=== PATIENT | male | born 1955 | race Caucasian/White ===

== ENCOUNTER 2024-03-26 14:18 | Outpatient (CLI) | payer MEDICARE, OTHER, SELFPAY ==
--- NOTE | ~2024-03-26 | XR_ITS ---
CHEST RADIOGRAPH, PA AND LATERAL CLINICAL HISTORY: chronic diastolic congestive heart failure . COMPARISON: None available TECHNIQUE: PA and lateral views of the chest. FINDINGS Sternal wires and mediastinal clips are identified, the wires are midline and intact. Clip is identified to the left of midline, projecting over the left atrial appendage. Prosthetic valve in the aortic position. The remainder of the cardiomediastinal silhouette is otherwise unremarkable. Blunting of the bilateral costophrenic sulci, consistent with small bilateral pleural effusions The remainder the lungs are clear IMPRESSION: Small bilateral pleural effusions without focal infiltrate. Reviewed, dictated and finalized at location A. S OR SURVEYS INTERVIEWER
[2024-03-26 15:28] LABS: Basophils Absolute Auto 0.1 K/mm3 (0.0-0.1); Basophils Percent Auto 0.4 % (0.2-1.2); Eosinophils Absolute Auto 0.1 K/mm3 (0-0.3); Eosinophils Percent Auto 0.9 % (0-4.4); Hematocrit 33.4 % (42.0-52.0); Hemoglobin 11.2 g/dL (14.0-18.0); Immature Granulocyte Absolute 0.05 K/mm3 (0.00-0.031); Immature Granulocyte Percent A 0.4 % (0-0.5); Lymphocytes Absolute Auto 0.66 K/mm3 (0.9-3.2); Lymphocytes Percent Auto 5.5 % (18.3-44.2); Mean Corpuscular HGB Conc 33.5 g/dl (32-36); Mean Corpuscular Hemoglobin 26.7 pg (26-34); Mean Corpuscular Volume 79.5 fl (80-100); Mean Platelet Volume 11.7 fl (7.4-10.4); Monocytes Absolute Auto 1.6 K/mm3 (0.1-0.6); Monocytes Percent Auto 13.3 % (2.6-8.5); Neutrophils Absolute Auto 9.5 K/mm3 (1.3-6.7); Neutrophils Percent Auto 79.5 % (45.5-73.1); Platelet Count Result 514 k/mm3 (150-375)
[2024-03-26 15:39] LABS: Alanine Aminotransferase 26 U/L (6-50); Albumin Level 4.1 g/dL (3.5-5.1); Alkaline Phosphatase 131 U/L (38-126); Anion Gap 10 mmol/L (4-12); Aspartate Amino Transferase 33 U/L (17-59); Blood Urea Nitrogen 42 mg/dL (9-20); Carbon Dioxide 26 mmol/L (22-30); Chloride 100 mmol/L (98-107); Estimated Glomerular Filt Rate 38; Glucose 141 mg/dL (65-110); Potassium 4.4 mmol/L (3.4-5.0); Sodium 136 mmol/L (137-145)
[2024-03-26 15:48] LABS: NT Pro B Type Natriuretic Pept 4960 pg/mL (19.9-100)
== END 2024-03-26 14:19 | disposition home or self-care (01) ==
DX: I50.32 Chronic diastolic (congestive) heart failure (principal); R06.02 Shortness of breath; J90 Pleural effusion, not elsewhere classified
CPT/HCPCS: 36415; 71046; 80053; 83880; 85025

== ENCOUNTER 2024-03-31 16:29 | Inpatient (IN) | payer MEDICARE, OTHER, SELFPAY ==
[2024-03-31] VITALS (17 sets, daily range): BP systolic 127–151; BP diastolic 55–67; PULSE 64–72; RESP 13–26; TEMP 36.1–36.5; O2SAT 93–97; BMI 22.7
--- NOTE | ~2024-03-31 | US_ITS ---
EXAMINATION: US venous doppler [facility] DATE: 04/01/2024 15:18 INDICATION: Lower limb swelling TECHNIQUE: Grayscale ultrasound images without and with compression and Doppler ultrasound images of the bilateral lower extremity veins were obtained. COMPARISON: None. FINDINGS: The visualized portions of right common femoral vein, profunda (deep) femoral vein, femoral vein, pop liteal vein, posterior tibial veins, peroneal veins, gastrocnemius vein and greater saphenous vein ou tflow are patent. The visualized portions of left common femoral vein, profunda femoral vein, femoral vein, popliteal v ein, posterior tibial veins, peroneal veins, gastrocnemius vein and greater saphenous vein outflow ar e patent. IMPRESSION: 1. No deep venous thrombosis in either lower limb. Reviewed, dictated and finalized at location A. ER SECURITY ADMINISTRATOR
--- NOTE | ~2024-03-31 | XR_ITS ---
XR chest 2V Ordering provider: Leydi Mac History: 69 years Male with . chf . Comparison: None. FINDINGS: MEDIASTINUM: The cardiac silhouette is not enlarged. Postoperative changes in the mediastinum. Slight ly congestive yash. LUNGS: No pneumothorax. Opacification in the left lower lobe area with minimal left pleural effusion or thickening. Underlying emphysematous/fibrotic changes. OTHER: No free air under the diaphragm. IMPRESSION: Left lower lobe atelectasis versus pneumonia with pleural effusion. Reviewed, dictated and finalized at location A. WOOD GRINDER
--- NOTE | ~2024-03-31 | XR_ITS ---
EXAMINATION: XR chest 1V portable DATE: 04/03/2024 11:17 INDICATION: New oxygen requirement TECHNIQUE: frontal view of the chest was obtained. COMPARISON: Chest radiograph dated 11/29/2023 FINDINGS: There are increasing opacities in the lower lung zones with retrocardiac consolidation. There is blun ting at the right costophrenic angle and indistinctness to the left hemidiaphragm consistent with sma ll bilateral pleural effusions. No pulmonary edema or pneumothorax. Heart size is normal. Median ster notomy wires and aortic valve repair. There is also a left atrial appendage occlusion clip. Multiple small ringlike opacities projecting over the upper abdomen consistent with likely prior ventral herni a mesh repair. IMPRESSION: 1. Increasing opacities in the bilateral lower lung zones consistent with increasing small bilateral pleural effusions and associated atelectasis and/or pneumonia. Reviewed, dictated and finalized at location A. R REUSE PROGRAM MANAGER IMPRESSION: 1. Increasing opacities in the bilateral lower lung zones consistent with incre asing small bilateral pleural effusions and associated atelectasis and/or pneum onia.
--- NOTE | 2024-03-31 16:30 | ECG_ITS ---
Test Date: 2024-03-31 16:42:07 Measurements Intervals [place] Rate: 67 P: 0 ND: 0 QRS: 34 QRSD: 166 T: 134 QT: 474 QTc: 503 Interpretive Statements SINUS RHYTHM WITH FIRT DEGREE AV BLOCK NON-CONDUCTED ATRIAL PREMATURE COMPLEXES LEFT BUNDLE BRANCH BLOCK BASELINE ARTIFACT- I, II, III, AVR, AVL, AVF, V4-V6 ABNORMAL ECG No previous ECG available for comparison Electronically Signed On 03-31-2024 19:10:20 TRUCK BRACER by Casey Lopez D.O.
--- NOTE | 2024-03-31 16:51 | ED.SOB ---
HPI - SOB/Dyspnea General Chief Complaint: Shortness of Breath/Dyspnea <DHAVAL Katz Last Filed: 03/31/24 17:01> Stated Complaint: chf <DHAVAL Katz Last Filed: 03/31/24 17:01> Time Seen by Provider: 03/31/24 16:45 <DHAVAL Katz Last Filed: 03/31/24 17:01> Focused HPI: Patient is a 69 y/o male, with PMH of AFIB, CHF, LBBB, CAD s/p stenting, who presents to the ED with c/o SOB. patient reports having increased shortness of breath and swelling in his lower extremities over the last several days. He was recently seen by his logistics lead, Dr. Lauren, and had his Lasix increased. Patient states he continues to gain weight have increased swelling. Denies chest pain. He does report a mild cough. Denies fevers. GENERAL: Elderly, frail, and in no acute distress. HEAD: Normocephalic, atraumatic. CHEST: Clear to auscultation. ?Mild tachypnea and labored breathing. Rhonchi in bases mara. Conversational dyspnea. HEART: Regular rate and rhythm.?Diffuse pitting edema in BLE NEURO: ?Alert and oriented x3. Patient screened in triage and initial orders placed.? ?Additional care and disposition to be based upon?diagnostic testing and treatment. <Keisha Del Angel PA-C - Last Filed: 03/31/24 17:01> Focused HPI: Patient is a 69 y/o male, with PMH of AFIB, CHF, LBBB, CAD s/p stenting, who presents to the ED with c/o SOB. Patient reports having increased shortness of breath and swelling in his lower extremities over the last several days. He was recently seen by his logistics lead, Dr. Lauren, and had his Lasix increased. Patient states he continues to gain weight have increased swelling. Denies chest pain. He does report a mild cough. Denies fevers. GENERAL: Elderly, frail, and in no acute distress. HEAD: Normocephalic, atraumatic. CHEST: Clear to auscultation. ?Mild tachypnea and labored breathing. Rhonchi in bases mara. Conversational dyspnea. HEART: Regular rate and rhythm.?Diffuse pitting edema in BLE NEURO: ?Alert and oriented x3. Patient screened in triage and initial orders placed.? ?Additional care and disposition to be based upon?diagnostic testing and treatment. <Kimberley Hidalgo MD - Last Filed: 03/31/24 21:22> Source: patient <Keisha Del Angel PA-C - Last Filed: 03/31/24 17:01> Mode of arrival: ambulatory <Keisha Del Angel PA-C - Last Filed: 03/31/24 17:01> Limitations: no limitations <DHAVAL Katz Last Filed: 03/31/24 17:01> Related Data Allergies/Adverse Reactions: Allergies Allergy/AdvReac Type Severity Reaction Status Date / Time No Known Allergies Allergy Verified 03/31/24 20:36 <Keisha Del Angel PA-C - Last Filed: 03/31/24 17:01> Review of Systems Review of Systems: All systems are reviewed and are negative unless stated otherwise in the HPI. <Kimberley Hidalgo MD - Last Filed: 03/31/24 21:22> Exam Narrative: General: Alert, awake, afebrile, in no acute distress. HEENT: PERRL, no rhinorrhea, no post nasal drip, oropharynx clear. Neck: Trachea midline, no JVD, no lymphadenopathy. Cardiovascular: Regular rate and rhythm, no murmurs, rubs or gallops, 2+ bilateral lower extremity pitting edema. Respiratory: Clear to auscultation bilaterally, no tachypnea, no wheezing, no rhonchi, no rubs, no respiratory distress. Abdomen: Soft, nontender, nondistended, no rebound, no guarding, no peritoneal signs. Musculoskeletal: No joint swelling or deformity, normal muscle tone. Skin: No rashes or petechia, no signs of infection. Psychiatric: Alert and oriented, normal behavior and judgment for situation. Neurological: Alert and oriented to person, place, and time. Follows all commands. No focal deficits, speech is clear and fluent. <Kimberley Hidalgo MD - Last Filed: 03/31/24 21:22> Course Vital Signs Vital signs: Vital Signs Temperature 97.7 F 03/31/24 16:56 Pulse Rate 68 03/31/24 16:56 Respiratory Rate 17 03/31/24 16:56 Blood Pressure 151/59 H 03/31/24 16:56 Pulse Oximetry 97 03/31/24 16:56 Temperature 97.7 F 03/31/24 16:56 Pulse Rate 69 03/31/24 21:12 Respiratory Rate 23 H 03/31/24 21:12 Blood Pressure 149/61 H 03/31/24 21:12 Pulse Oximetry 94 03/31/24 19:40 <Keisha Del Angel PA-C - Last Filed: 03/31/24 17:01> Vital Signs Temperature 97.7 F 03/31/24 16:56 Pulse Rate 68 03/31/24 16:56 Respiratory Rate 17 03/31/24 16:56 Blood Pressure 151/59 H 03/31/24 16:56 Pulse Oximetry 97 03/31/24 16:56 Temperature 97.7 F 03/31/24 16:56 Pulse Rate 69 03/31/24 21:12 Respiratory Rate 23 H 03/31/24 21:12 Blood Pressure 149/61 H 03/31/24 21:12 Pulse Oximetry 94 03/31/24 19:40 <Kimberley Hidalgo MD - Last Filed: 03/31/24 21:22> MDM - SOB/Dyspnea MDM Narrative Medical decision making narrative: MSE by AYDIN in triage. <Keisha Del Angel PA-C - Last Filed: 03/31/24 17:01> MSE by AYDIN in triage. The patient was evaluated by myself in the emergency department. History is obtained from patient who is an independent historian and physical exam was performed. External medical records were reviewed at this time. IV was established and pertinent tests were ordered. Patient was administered 80 mg of IV Lasix. Patient recently had his Lasix increased from 40 mg once a day to 80 mg twice a day for the past week with minimal to no improvement of his symptoms. EKG was obtained which revealed sinus rhythm rate of 67 beats per minute. No ST changes, T wave inversions or evidence of acute ischemia. EKG was independently interpreted by me and is currently pending official cardiology read. Laboratory results obtained revealing a leukocytosis of 12.5, BUN 43, creatinine 1.6 and a proBNP of 3680. Imaging studies obtained included CXR which was independently interpreted by me revealing a left lower lobe atelectasis versus pneumonia with pleural effusion, which is pending final radiology interpretation. Patient was started on azithromycin and Rocephin to cover him for community-acquired pneumonia after blood cultures were obtained. Differential diagnosis considerations include CHF exacerbation, fluid overload, infectious process such as pneumonia, acute viral syndrome. Comorbidities impacting this visit include history of CHF. I have evaluated and discussed social determinants of health with the patient that could potentially impact subsequent diagnosis and treatment plans. On repeat assessment of the patient, reevaluation revealed that the patient is doing well and is in no acute distress. Patient symptoms have remained stable since he arrived to our emergency department. Repeat vital signs were all reviewed and noted to be stable. Differential diagnosis and treatment plan were discussed with the patient at bedside. Patient agrees with discussion and after shared medical decision making agrees with admission. All questions were answered to the patient's satisfaction. Patient will be admitted to our general medical floor under the care of Dr. Branch and case was discussed with the on-call RETAIL SALES ASSOCIATE SEASONAL Carlos at 2024 and he accepted admisison. The patient remains stable and ready for admission. <Kimberley Hidalgo MD - Last Filed: 03/31/24 21:22> Lab Data Result diagrams: 03/31/24 17:02 03/31/24 17:02 <Keisha Del Angel PA-C - Last Filed: 03/31/24 17:01> Labs: Lab Results 03/31/24 Range/Units 17:02 WBC 12.5 H (4.5-10.0) K/mm3 RBC 4.25 L (4.6-6.20) M/mm3 Hgb 11.2 L (14.0-18.0) g/dL Hct 33.2 L (42.0-52.0) % MCV 78.1 L (80-100) fl MCH 26.4 (26-34) pg MCHC 33.7 (32-36) g/dl RDW 21.0 H (11.5-14.5) % Plt Count 541 H (150-375) k/mm3 MPV 10.5 H (7.4-10.4) fl Immature Gran % (Auto) 0.6 H (0-0.5) % Neut % (Auto) 75.9 H (45.5-73.1) % Lymph % (Auto) 7.5 L (18.3-44.2) % [place] % (Auto) 13.2 H (2.6-8.5) % Eos % (Auto) 2.2 (0-4.4) % Baso % (Auto) 0.6 (0.2-1.2) % Lymph # (Auto) 0.94 (0.9-3.2) K/mm3 [place] # (Auto) 1.7 H (0.1-0.6) K/mm3 Eos # (Auto) 0.3 (0-0.3) K/mm3 Baso # (Auto) 0.1 (0.0-0.1) K/mm3 Abs Immat Gran (auto) 0.07 H (0.00-0.031) K/mm3 Absolute Neuts (auto) 9.5 H (1.3-6.7) K/mm3 Absolute Nucleated RBC 0.000 (0.0-0.012) K/mm3 Nucleated RBC % 0.0 (0.0-0.2) % PT 15.4 H (11.1-14.7) Seconds INR 1.2 APTT 31.6 (22.3-36.8) Seconds Sodium 134 L (137-145) mmol/L Potassium 4.0 (3.4-5.0) mmol/L Chloride 99 (98-107) mmol/L Carbon Dioxide 28 (22-30) mmol/L Anion Gap 7 (4-12) mmol/L BUN 43 H (9-20) mg/dL Creatinine 1.60 H (0.7-1.3) mg/dL Estim Creat Clear Calc 40 ml/min Estimated GFR 43 L (59 - ) Glucose 108 (65-110) mg/dL Calcium 8.7 (8.4-10.2) mg/dL Total Bilirubin 1.0 (0.2-1.3) mg/dL AST 44 (17-59) U/L ALT 35 (6-50) U/L Alkaline Phosphatase 166 H (38-126) U/L Troponin I 0.018 (0.000-0.034) ng/mL NT-Pro-B Natriuret Pep 3680 H (19.9-100) pg/mL Total Protein 8.0 (6.3-8.2) g/dL Albumin 4.1 (3.5-5.1) g/dL <Keisha Del Angel PA-C - Last Filed: 03/31/24 17:01> Lab Results 03/31/24 Range/Units 17:02 WBC 12.5 H (4.5-10.0) K/mm3 RBC 4.25 L (4.6-6.20) M/mm3 Hgb 11.2 L (14.0-18.0) g/dL Hct 33.2 L (42.0-52.0) % MCV 78.1 L (80-100) fl MCH 26.4 (26-34) pg MCHC 33.7 (32-36) g/dl RDW 21.0 H (11.5-14.5) % Plt Count 541 H (150-375) k/mm3 MPV 10.5 H (7.4-10.4) fl Immature Gran % (Auto) 0.6 H (0-0.5) % Neut % (Auto) 75.9 H (45.5-73.1) % Lymph % (Auto) 7.5 L (18.3-44.2) % [place] % (Auto) 13.2 H (2.6-8.5) % Eos % (Auto) 2.2 (0-4.4) % Baso % (Auto) 0.6 (0.2-1.2) % Lymph # (Auto) 0.94 (0.9-3.2) K/mm3 [place] # (Auto) 1.7 H (0.1-0.6) K/mm3 Eos # (Auto) 0.3 (0-0.3) K/mm3 Baso # (Auto) 0.1 (0.0-0.1) K/mm3 Abs Immat Gran (auto) 0.07 H (0.00-0.031) K/mm3 Absolute Neuts (auto) 9.5 H (1.3-6.7) K/mm3 Absolute Nucleated RBC 0.000 (0.0-0.012) K/mm3 Nucleated RBC % 0.0 (0.0-0.2) % PT 15.4 H (11.1-14.7) Seconds INR 1.2 APTT 31.6 (22.3-36.8) Seconds Sodium 134 L (137-145) mmol/L Potassium 4.0 (3.4-5.0) mmol/L Chloride 99 (98-107) mmol/L Carbon Dioxide 28 (22-30) mmol/L Anion Gap 7 (4-12) mmol/L BUN 43 H (9-20) mg/dL Creatinine 1.60 H (0.7-1.3) mg/dL Estim Creat Clear Calc 40 ml/min Estimated GFR 43 L (59 - ) Glucose 108 (65-110) mg/dL Calcium 8.7 (8.4-10.2) mg/dL Total Bilirubin 1.0 (0.2-1.3) mg/dL AST 44 (17-59) U/L ALT 35 (6-50) U/L Alkaline Phosphatase 166 H (38-126) U/L Troponin I 0.018 (0.000-0.034) ng/mL NT-Pro-B Natriuret Pep 3680 H (19.9-100) pg/mL Total Protein 8.0 (6.3-8.2) g/dL Albumin 4.1 (3.5-5.1) g/dL <Kimberley Hidalgo MD - Last Filed: 03/31/24 21:22> Discharge Plan Discharge Clinical Impression: Community acquired pneumonia, Congestive heart failure, Bilateral edema of lower extremity <Keisha Del Angel PA-C - Last Filed: 03/31/24 17:01> Patient Disposition: Still a Patient <Keisha Del Angel PA-C - Last Filed: 03/31/24 17:01> Condition: Stable <Keisha Del Angel PA-C - Last Filed: 03/31/24 17:01> Time of Disposition: 21:22 <Keisha Del Angel PA-C - Last Filed: 03/31/24 17:01> 21:22 <Kimberley Hidalgo MD - Last Filed: 03/31/24 21:22>
[2024-03-31 17:08] LABS: Basophils Absolute Auto 0.1 K/mm3 (0.0-0.1); Basophils Percent Auto 0.6 % (0.2-1.2); Eosinophils Absolute Auto 0.3 K/mm3 (0-0.3); Eosinophils Percent Auto 2.2 % (0-4.4); Hematocrit 33.2 % (42.0-52.0); Hemoglobin 11.2 g/dL (14.0-18.0); Immature Granulocyte Absolute 0.07 K/mm3 (0.00-0.031); Immature Granulocyte Percent A 0.6 % (0-0.5); Lymphocytes Absolute Auto 0.94 K/mm3 (0.9-3.2); Lymphocytes Percent Auto 7.5 % (18.3-44.2); Mean Corpuscular HGB Conc 33.7 g/dl (32-36); Mean Corpuscular Hemoglobin 26.4 pg (26-34); Mean Corpuscular Volume 78.1 fl (80-100); Mean Platelet Volume 10.5 fl (7.4-10.4); Monocytes Absolute Auto 1.7 K/mm3 (0.1-0.6); Monocytes Percent Auto 13.2 % (2.6-8.5); Neutrophils Absolute Auto 9.5 K/mm3 (1.3-6.7); Neutrophils Percent Auto 75.9 % (45.5-73.1); Platelet Count Result 541 k/mm3 (150-375); Red Blood Count 4.25 M/mm3 (4.6-6.20); White Blood Count 12.5 K/mm3 (4.5-10.0)
[2024-03-31 17:19] LABS: INR 1.2; Prothrombin Time 15.4 Seconds (11.1-14.7)
[2024-03-31 17:20] LABS: Alanine Aminotransferase 35 U/L (6-50); Albumin Level 4.1 g/dL (3.5-5.1); Alkaline Phosphatase 166 U/L (38-126); Anion Gap 7 mmol/L (4-12); Aspartate Amino Transferase 44 U/L (17-59); Blood Urea Nitrogen 43 mg/dL (9-20); Calcium 8.7 mg/dL (8.4-10.2); Carbon Dioxide 28 mmol/L (22-30); Chloride 99 mmol/L (98-107); Estimated CRCL calculation 40 ml/min; Estimated Glomerular Filt Rate 43; Glucose 108 mg/dL (65-110); Partial Thromboplastin Time 31.6 Seconds (22.3-36.8); Sodium 134 mmol/L (137-145)
[2024-03-31 17:31] LABS: NT Pro B Type Natriuretic Pept 3680 pg/mL (19.9-100); Troponin I 0.018 ng/mL (0.000-0.034)
--- NOTE | 2024-03-31 20:19 | P.HP_ITS ---
H&P: HPI History of Present Illness Date/Time: 03/31/24 20:19 Chief Complaint: progressive shortness of breath Narrative: This is a 69-year-old male patient with a past medical history of hypertension, congestive heart failure, chronic constipation type 2 diabetes and recent aortic valve replacement with left atrial appendage closure and Maze procedure who presents to the emergency department with bilateral lower extremities swelling and progressive shortness of breath with decreased activity tolerance. Patient reports he is no longer on any anticoagulation. He was previously on Lasix 40 mg daily and his prescription was increased to twice a day but his symptoms continued to worsen. On arrival to the emergency department white blood cell count 12.5, pro BNP 3680 which is slightly improved from over 4000 last week. Creatinine 1.6 and BUN of 43. His exhibit artist (Dr. Lauren) has requested outpatient referral to nephrology due to chronic kidney disease with rising creatinine. About 2 weeks ago patient had lightheadedness dizziness and slow heart rate when trying to continue his cardiac rehab so his metoprolol and amiodarone were discontinued and patient was placed on hydralazine and amlodipine instead for blood pressure control. His lower extremity swelling has definitely increased since the change in medications. Chest x-ray shows left pleural effusion and atelectasis versus pneumonia. Patient was started on Rocephin and azithromycin for community-acquired pneumonia. He was also given 80 mg IV Lasix in the emergency department for CHF exacerbation. Patient denies fever chills but does report a cough. Review of Systems Review of Systems: All systems reviewed & are unremarkable except as noted in HPI and below PMFSH Family History Family History (Updated 03/31/24 @ 21:40 by Maye Bonds RN) Other Acute kidney failure Cancer Cancer of kidney Hypertension Throat cancer Social History Social History Smoking status: Never smoker Substance use type: does not use Do You Feel Safe in your Home?: Yes Lack of Transportation: No Lack of Food: Never True Current Housing: I Have Housing Concerned About Future Housing: No Difficulty Paying Gas/Electric Bills: No Difficulty Paying for Meds: No Currently Unemployed: No Education: Master's Degree or Higher Difficulty w/ Childcare or Family Care: No Spiritual care concerns: No Meds Home Medications and Allergies Home Medications Medication Instructions Recorded Confirmed Type amlodipine 10 mg tablet 10 mg PO DAILY 03/31/24 03/31/24 History aspirin 81 mg tablet,delayed 81 mg PO DAILY 03/31/24 03/31/24 History release atorvastatin 40 mg tablet 40 mg PO DAILY 03/31/24 03/31/24 History ferrous sulfate 325 mg (65 mg 325 mg PO DAILY 03/31/24 03/31/24 History iron) tablet fluticasone 250 mcg-salmeterol 50 2 inh inhalation DAILY 03/31/24 03/31/24 History mcg/dose blistr powdr for inhalation (Wixela Inhub) furosemide 40 mg tablet 40 mg PO DAILY 03/31/24 03/31/24 History gabapentin 400 mg capsule 400 mg PO BID 03/31/24 03/31/24 History hydralazine 50 mg tablet 50 mg PO TID 03/31/24 03/31/24 History linaclotide 145 mcg capsule 145 mcg PO DAILY 03/31/24 03/31/24 History (Linzess) metformin 500 mg tablet 500 mg PO DAILY 03/31/24 03/31/24 History methocarbamol 500 mg tablet 500 mg PO TID PRN muscle spasms 03/31/24 03/31/24 History montelukast 10 mg tablet 10 mg PO DAILY 03/31/24 03/31/24 History Allergies Allergy/AdvReac Type Severity Reaction Status Date / Time No Known Allergies Allergy Verified 03/31/24 20:36 Vital Signs Vital Signs - 24 hr 03/31/24 16:56 03/31/24 19:39 03/31/24 19:40 Temperature 36.5 C Pulse Rate 68 68 68 Respiratory Rate 17 21 H Blood Pressure 151/59 H 142/64 H Pulse Oximetry 97 94 Exam Narrative: General: Alert, awake, afebrile, in no acute distress. HEENT: PERRL, no rhinorrhea, no post nasal drip, oropharynx clear. Neck: Trachea midline, no JVD, no lymphadenopathy. Cardiovascular: Regular rate and rhythm, no murmurs, rubs or gallops, 2+ bilateral lower extremity pitting edema to the level of the knees. Respiratory: Clear to auscultation bilaterally, no tachypnea, no wheezing, no rhonchi, no rubs, no respiratory distress. Abdomen: Soft, nontender, nondistended, no rebound, no guarding, no peritoneal signs. Musculoskeletal: No joint swelling or deformity, normal muscle tone. Skin: No rashes or petechia, no signs of infection. Psychiatric: Alert and oriented, normal behavior and judgment for situation. Neurological: Alert and oriented to person, place, and time. Follows all commands. No focal deficits, speech is clear and fluent. H&P: Results Labs Labs: Short CBC 03/31/24 Range/Units 17:02 WBC 12.5 H (4.5-10.0) K/mm3 Hgb 11.2 L (14.0-18.0) g/dL Hct 33.2 L (42.0-52.0) % Plt Count 541 H (150-375) k/mm3 BMP 03/31/24 17:02 Sodium 134 L Potassium 4.0 Chloride 99 Carbon Dioxide 28 BUN 43 H Creatinine 1.60 H Glucose 108 Calcium 8.7 Cardiac Enzymes 03/31/24 Range/Units 17:02 Troponin I 0.018 (0.000-0.034) ng/mL Liver Function 03/31/24 Range/Units 17:02 Total Bilirubin 1.0 (0.2-1.3) mg/dL AST 44 (17-59) U/L ALT 35 (6-50) U/L Alkaline Phosphatase 166 H (38-126) U/L Albumin 4.1 (3.5-5.1) g/dL Pulse Oximetry SpO2 results: 96% on room air Attestation: I personally reviewed and interpreted this pulse oximetry as follows: Interpretation: no need for supplemental oxygenation at this time ECG Attestation: I personally reviewed and interpreted this ECG as follows: ECG completion date: 03/31/24 ECG completion time: 16:42 Prior ECG tracings: not available for review Interpretation: sinus rhythm rate of 67 first-degree AV block CT interval approximately 240-260, QRS duration 166 with a left bundle-branch block, QTC 503, QRS axis 34, no STEMI Imaging Chest x-ray: Radiologist's impression: XR chest 2V Ordering provider: Leydi Mac History: 69 years Male with . chf . Comparison: None. FINDINGS: MEDIASTINUM: The cardiac silhouette is not enlarged. Postoperative changes in the mediastinum. Slightly congestive yash. LUNGS: No pneumothorax. Opacification in the left lower lobe area with minimal left pleural effusion or thickening. Underlying emphysematous/fibrotic changes. OTHER: No free air under the diaphragm. IMPRESSION: Left lower lobe atelectasis versus pneumonia with pleural effusion. Reviewed, dictated and finalized at location A. TICS SPECIALIST Assessment and Plan Assessment and plan (1) Community acquired pneumonia: Code(s): J18.9 - Pneumonia, unspecified organism Status: Acute Assessment and Plan: -LLL atelectasis vs pneumonia along with left pleural effusion -WBC 12.5, cough present, no fever/chills -Initiated on Rocephin/azithromycin in ER -Continue Rocephin but change to doxycycline given prolonged QTC with LBBB on EKG -MRSA, Covid/flu/RSV, Chlamydia pneumoniae, mycoplasma, pneumococcal antigen and Legionella antigen testing sent (2) Congestive heart failure: Code(s): I50.9 - Heart failure, unspecified Status: Acute Assessment and Plan: -Patient on furosemide 40 mg at baseline, recently increased to 40 mg BID -Worsening dyspnea and worsening bilateral lower extremity swelling -Left pleural effusion on CXR -Unknown results of Echocardiogram except prior aortic valve stenosis resulting in aortic valve replacement with Maze and left atrial appendage closure October 2023 -IV Lasix 80 mg given in ER -Ordered 40 mg IV BID for now -Ordered Echocardiogram -Sees Dr. Lauren as outpatient, consider Cardiology consult (3) Bilateral edema of lower extremity: Code(s): R60.0 - Localized edema Status: Acute Assessment and Plan: 2-3+ pitting edema in bilateral lower extremities up to level of knees -Blood pressure medication recently changed to amlodipine and hydralazine instead of metoprolol and amiodarone due to bradycardia and dizziness (4) QT prolongation: Code(s): R94.31 - Abnormal electrocardiogram [ECG] [EKG] Status: Acute Assessment and Plan: -EKG with prolonged QTC as well as LBBB, no prior EKG on file -Consider consult Cardiology or request records of prior EKG for comparison -Changed azithromycin to doxycycline for treatment of pneumonia Quality VTE Prophylaxis VTE prophylaxis: pharmacologic ordered Dictation performed by [employer] direct speech recognition software, therefore finishing manager variants and typographical errors may occur. Hospitalist MIPS Advance Care Plan I have confirmed that the patient's Advanced Care Plan is present, code status is documented, or surrogate decision maker is listed in patient medical record.: Yes Medication Reconciliation I have utilized all available resources to obtain, update and review the patients current medications (includes all prescriptions, OTC, herbals, cannabis, and nutritional supplements).: Yes
[2024-03-31] MEDS: FUROSEMIDE INJ 100 MG/10 ML VIAL 80 MG IV PUSH (21:02)
[2024-03-31] MEDS: AZITHROMYCIN 500 MG/NS 250 ML 500 MG/250 ML BAG 250 MG IVPB (21:35)
[2024-03-31 22:59] LABS: Hemoglobin A1C 6.4 % (<5.7)
--- NOTE | 2024-03-31 23:13 | ADMGEN ---
This patient, Duong Beckman Jr., was admitted to Medical Room 245. Patient/family oriented to hospital policies and general routines including ID bracelet, bed and alarms, visiting hours, pain management, procedures, bathroom and other care routines, personal items, smoking policy, room service/diet, and visiting hours. Information on how to activate the Rapid Response Team has been discussed. Patient/Family are encouraged to report perceived risks to care and to ask questions if they do not understand what they are told or what they should do.
[2024-04-01] VITALS (10 sets, daily range): BP systolic 115–142; BP diastolic 48–59; PULSE 58–83; RESP 16–20; TEMP 36.2–37.3; O2SAT 91–95
--- NOTE | 2024-04-01 | ECHO_ITS ---
Patient Info Name: Duong Morales Beckman Age: 69 years : 1955 Gender: Male Ht: 69 in Wt: 158 lbs BSA: 1.87 m2 HR: 69 bpm BP: 139 / 66 mmHg Heart Rhythm: Sinus Rhythm, Left Bundle Branch Block Technical Quality: Good Exam Date: 04/01/2024 10:48 AM Exam Location: Echo Lab Patient Status: Inpatient Admit Date: 03/31/2024 Staff Ordering Physician: Javier Gonzalez APRN Crester: Sheela Ramírez RDCS Attending Provider: Jovanny Branch MD Referring Physician: Carlos DEL RIO; Exam Type: CA echo doppler color flow Study Info Indications - CHF EXacerbation Complete two-dimensional, color flow and Doppler transthoracic echocardiogram is performed. Summary 1. Left ventricular chamber dimension is normal. 2. Left ventricular systolic function is normal, estimated at 60-65%. 3. There is mildly increased left ventricular wall thickness. 4. Right ventricular systolic function is normal. 5. Left atrial chamber dimension is mildly enlarged. 6. Right atrial chamber dimension is moderately enlarged. 7. Normal appearing aortic bioprosthetic valve. Mean gradient of 10mmHg. Peak velocity of 1.85 m/s. 8. There is moderate mitral valve regurgitation. 9. There is mild to moderate tricuspid valve regurgitation. Left Ventricle Left ventricular chamber dimension is normal. Left ventricular systolic function is normal, estimated at 60-65%. There is mildly increased left ventricular wall thickness. Left ventricular septal wall motion is abnormal with septal motion related to bundle branch block. The left ventricular diastolic function is indeterminate. Right Ventricle Right ventricular chamber dimension is normal. Right ventricular systolic function is normal. Left Atria Left atrial chamber dimension is mildly enlarged. Right Atria Right atrial chamber dimension is moderately enlarged. Atrial Septum Intact interatrial septum visualized by color flow imaging. Aortic Valve Normal appearing aortic bioprosthetic valve. Mean gradient of 10mmHg. Peak velocity of 1.85 m/s. There is no regurgitation of the bioprosthetic aortic valve. Pulmonic Valve The pulmonic valve is not well visualized. There is no pulmonic regurgitation. Mitral Valve There is moderate mitral valve regurgitation. The mitral valve annulus is mildly calcified. Tricuspid Valve There is mild to moderate tricuspid valve regurgitation. Pericardium/Pleural There is no pericardial effusion. Inferior Vena Cava Inferior vena cava is not well visualized. Aorta The aortic root size at the sinus of Valsalva is normal. Left Ventricular Outflow Tract Name Value Normal LVOT 2D LVOT Diameter 1.7 cm LVOT Doppler LVOT Peak Gradient 6 mmHg LVOT Mean Gradient 4 mmHg LVOT VTI 28 cm LVOT VTI/AV VTI Ratio 0.7 LVOT Stroke Volume 65 ml LVOT CO 5.0 l/min LVOT CI 2.7 l/min/m2 Mitral Valve Name Value Normal MV Doppler MV Peak Gradient 23 mmHg MV Mean Gradient 9 mmHg MV Decel Davis 680 cm/s2 MV PHT 79 ms MV Area (PHT) 2.8 cm2 4.0-5.0 MV Area (Cont Eq VTI) 0.7 cm2 MV Regurgitation Doppler MR Peak Gradient 94 mmHg MV Diastolic Function MV E Peak Velocity 185 cm/s MV A Peak Velocity 55 cm/s MV E/A 3.4 MV Decel Time 272 ms MV Annular TDI MV E/e' (Septal) 44.9 <=8.0 MV E/e' (Lateral) 22.0 <=8.0 MV E/e' (Average) 33.4 Tricuspid Valve Name Value Normal TV Regurgitation Doppler TR Peak Velocity 317 cm/s TR Peak Gradient 40 mmHg Estimated PAP/RSVP RV Systolic Pressure 50 mmHg <36 Aortic Valve Name Value Normal AV Doppler AV Peak Velocity 185 cm/s AV Peak Gradient 14 mmHg AV Mean Gradient 10 mmHg AV VTI 40 cm AV Area (Cont Eq VTI) 1.6 cm2 >=3.0 AV Area (Cont Eq Jaya) 1.5 cm2 AV Regurgitation 2D LVOT Area 2.3 cm2 Ventricles Name Value Normal LV Dimensions 2D/MM IVS Diastolic Thickness (2D) 1.1 cm 0.6-1.0 LVID Diastole (2D) 4.5 cm 4.2-5.8 LVIW Diastolic Thickness (2D) 1.1 cm 0.6-1.0 LVID Systole (2D) 3.3 cm 2.5-4.0 LVOT Diameter 1.7 cm LV Mass (2D Cubed) 172.83 g 88.00-224.00 LV Mass Index (2D Cubed) 92 g/m2 49-115 Relative Wall Thickness (2D) 0.50 LV Fractional Shortening/Ejection Fraction 2D/MM LV Fractional Shortening (2D) 26 % 25-43 LV EF (2D Teicholz) 51 % 52-72 LV Diastolic Volume (4C MOD) 117 ml LV EF (4C MOD) 54 % LV Diastolic Volume (2C MOD) 159 ml LV EF (2C MOD) 59 % LV Diastolic Volume (BP MOD) 136 ml 62-150 LV Diastolic Volume Index (BP MOD) 73 ml/m2 34-74 LV Systolic Volume (BP MOD) 62 ml 21-61 LV Systolic Volume Index (BP MOD) 33 ml/m2 11-31 LV EF (BP MOD) 55 % 52-72 LV Diastolic Length (4C) 8.5 cm LV Systolic Length (4C) 7.6 cm LV Stroke Volume (4C MOD) 63 ml Atria Name Value Normal LA Dimensions LA Volume (4C A-L) 49 ml LA Volume (BP A-L) 58 ml RA Dimensions RA Area (4C) 17.1 cm2 <=18.0 Report Signatures
[2024-04-01 03:45] LABS: Influenza A QL RT-PCR Negative (Negative); Influenza B QL RT-PCR Negative (Negative); RSV RNA, RT-PCR Negative (Negative); SARS-CoV-2 RNA PCR Negative (Negative)
[2024-04-01 03:59] LABS: Glucose Point of Care 89 mg/dl (65-105)
[2024-04-01 04:21] LABS: MRSA (PCR) NOT DETECTED (NOT DETECTE)
[2024-04-01 05:59] LABS: Basophils Absolute Auto 0.1 K/mm3 (0.0-0.1); Basophils Percent Auto 0.9 % (0.2-1.2); Eosinophils Absolute Auto 0.2 K/mm3 (0-0.3); Eosinophils Percent Auto 2.1 % (0-4.4); Hematocrit 30.5 % (42.0-52.0); Hemoglobin 10.3 g/dL (14.0-18.0); Immature Granulocyte Absolute 0.07 K/mm3 (0.00-0.031); Immature Granulocyte Percent A 0.6 % (0-0.5); Lymphocytes Absolute Auto 0.66 K/mm3 (0.9-3.2); Lymphocytes Percent Auto 5.9 % (18.3-44.2); Mean Corpuscular HGB Conc 33.8 g/dl (32-36); Mean Corpuscular Hemoglobin 26.1 pg (26-34); Mean Corpuscular Volume 77.4 fl (80-100); Mean Platelet Volume 11.8 fl (7.4-10.4); Monocytes Absolute Auto 1.5 K/mm3 (0.1-0.6); Neutrophils Absolute Auto 8.7 K/mm3 (1.3-6.7); Neutrophils Percent Auto 77.5 % (45.5-73.1); Platelet Count Result 545 k/mm3 (150-375); Red Blood Count 3.94 M/mm3 (4.6-6.20); Red Cell Distribution Width 20.3 % (11.5-14.5); White Blood Count 11.2 K/mm3 (4.5-10.0)
[2024-04-01 06:10] LABS: Alanine Aminotransferase 28 U/L (6-50); Albumin Level 3.5 g/dL (3.5-5.1); Alkaline Phosphatase 138 U/L (38-126); Anion Gap 6 mmol/L (4-12); Aspartate Amino Transferase 37 U/L (17-59); Blood Urea Nitrogen 37 mg/dL (9-20); Calcium 8.3 mg/dL (8.4-10.2); Carbon Dioxide 30 mmol/L (22-30); Chloride 99 mmol/L (98-107); Estimated CRCL calculation 43 ml/min; Estimated Glomerular Filt Rate 47; Glucose 72 mg/dL (65-110); Magnesium 2.1 mg/dL (1.6-2.3); Phosphorus 3.8 mg/dL (2.5-4.5); Potassium 3.4 mmol/L (3.4-5.0); Sodium 135 mmol/L (137-145)
[2024-04-01] MEDS: hydrALAZINE HCL 50 MG TABLET PO ×3 (06:11→20:34)
[2024-04-01 08:01] LABS: Glucose Point of Care 86 mg/dl (65-105)
[2024-04-01] MEDS: FUROSEMIDE INJ 40 MG/4 ML VIAL IV PUSH ×2 (08:03→16:40)
[2024-04-01] MEDS: LINACLOTIDE 145 MCG CAPSULE PO (08:05)
[2024-04-01] MEDS: amLODIPine BESYLATE 10 MG TABLET PO (08:05)
[2024-04-01] MEDS: MONTELUKAST SODIUM 10 MG TABLET PO (08:05)
[2024-04-01] MEDS: GABAPENTIN 400 MG CAPSULE PO ×2 (08:05→20:34)
[2024-04-01] MEDS: ATORVASTATIN 40 MG TABLET PO (08:05)
[2024-04-01] MEDS: ASPIRIN 81 MG ENTERIC TABLET PO (08:05)
[2024-04-01] MEDS: ENOXAPARIN 40 MG/0.4 ML SYRINGE SUB-Q (08:06)
[2024-04-01] MEDS: DOXYCYCLINE HYCLATE 100 MG TABLET PO ×2 (08:06→20:33)
[2024-04-01 08:18] LABS: Glucose Point of Care 80 mg/dl (65-105)
[2024-04-01] MEDS: FLUTICASONE/SALMETEROL 115-21 MCG INHALER 1 PUFF 2 PUFF INHALATION ×2 (08:23→20:49)
[2024-04-01 12:12] LABS: Glucose Point of Care 127 mg/dl (65-105)
--- NOTE | 2024-04-01 12:50 | PM.IMPN ---
Progress Note: A&P Assessment and Plan (1) Community acquired pneumonia: Code(s): J18.9 - Pneumonia, unspecified organism Status: Acute Assessment and Plan: -LLL atelectasis vs pneumonia along with left pleural effusion -WBC 11.2, cough present, no fever/chills -Initiated on Rocephin/azithromycin in ER -Continue Rocephin but change to doxycycline given prolonged QTC with LBBB on EKG -MRSA, Covid/flu/RSV, Chlamydia pneumoniae, mycoplasma, pneumococcal antigen and Legionella antigen testing sent (2) Congestive heart failure: Code(s): I50.9 - Heart failure, unspecified Status: Acute Assessment and Plan: -Patient on furosemide 40 mg at baseline, recently increased to 40 mg BID -Worsening dyspnea and worsening bilateral lower extremity swelling -Left pleural effusion on CXR -Unknown results of Echocardiogram except prior aortic valve stenosis resulting in aortic valve replacement with Maze and left atrial appendage closure October 2023 -IV Lasix 80 mg given in ER -Ordered 40 mg IV BID for now -Echocardiogram completed, waiting for reading. -Sees Dr. Lauren as outpatient, Cardiology consult -Cardiology discontinued Amlodipine and started Spironolactone 25 mg PO daily. (3) Bilateral edema of lower extremity: Code(s): R60.0 - Localized edema Status: Acute Assessment and Plan: -2+ pitting edema in bilateral lower extremities up to level of knees -Blood pressure medication recently changed to amlodipine and hydralazine instead of metoprolol and amiodarone due to bradycardia and dizziness -Cardiology discontinued Amlodipine and started Spironolactone 25 mg PO daily. -LE dopplers showed no DVT. (4) QT prolongation: Code(s): R94.31 - Abnormal electrocardiogram [ECG] [EKG] Status: Acute Assessment and Plan: -EKG with prolonged QTC 503 as well as LBBB, no prior EKG on file -Consider consult Cardiology or request records of prior EKG for comparison -Changed azithromycin to doxycycline for treatment of pneumonia Subjective Date/time seen: 04/01/24 12:50 Interval history: Patient denies chest pain, palpitations, headache, dizziness, nausea, or vomiting. Patient reports that his swelling is improving. Patient reports that he gained 11 lb in 10 days. at bedside. Reports that patients medications were recently changed for his heart and since then he started gaining weight. Review of Systems Review of Systems: All systems reviewed & are unremarkable except as noted in HPI and below Exam Const: General: comfortable and no acute distress Resp: Effort & Inspection: normal respiratory effort Auscultation: rales bilateral Cardio: Rate: regular rate Rhythm: abnormal rhythm Heart sounds: Murmur heart sound present systolic GI: GI Palp: Yes Soft to palpation Auscultation: normal bowel sounds Neuro: Speech: normal speech Extrem: General: pedal edema bilaterally 2+ Psych: Mental Status: mental status grossly normal Affect: normal affect Objective Data Vital Signs Vital Signs: Vital Signs - 24 hr 03/31/24 16:56 03/31/24 19:39 03/31/24 19:40 Temperature 97.7 F Pulse Rate 68 68 68 Respiratory Rate 17 21 H Blood Pressure 151/59 H 142/64 H Pulse Oximetry 97 94 Oxygen Delivery 03/31/24 19:52 03/31/24 20:00 03/31/24 20:01 Temperature Pulse Rate 72 67 65 Respiratory Rate 13 23 H 26 H Blood Pressure 140/60 Pulse Oximetry Oxygen Delivery 03/31/24 20:12 03/31/24 20:15 03/31/24 20:16 Temperature Pulse Rate 68 70 68 Respiratory Rate 17 21 H 19 Blood Pressure 143/67 H 147/65 H Pulse Oximetry Oxygen Delivery 03/31/24 20:30 03/31/24 20:31 03/31/24 20:45 Temperature Pulse Rate 68 67 68 Respiratory Rate 23 H 17 20 Blood Pressure 135/66 Pulse Oximetry Oxygen Delivery 03/31/24 20:46 03/31/24 21:12 03/31/24 21:39 Temperature Pulse Rate 65 69 69 Respiratory Rate 16 23 H 23 H Blood Pressure 137/57 L 149/61 H 139/66 Pulse Oximetry 96 Oxygen Delivery 03/31/24 22:11 03/31/24 22:00 04/01/24 06:00 Temperature 97.3 F L Pulse Rate 68 Respiratory Rate 16 Blood Pressure 142/53 H Pulse Oximetry 96 93 Oxygen Delivery Room Air Room Air 03/31/24 22:30 04/01/24 07:55 04/01/24 08:05 Temperature 97.0 F L 97.2 F L Pulse Rate 64 72 72 Respiratory Rate 16 18 18 Blood Pressure 127/55 L 140/59 L Pulse Oximetry 93 92 92 Oxygen Delivery Room Air 04/01/24 08:23 Temperature Pulse Rate Respiratory Rate Blood Pressure Pulse Oximetry 94 Oxygen Delivery Room Air Intake/Output Intake/Output: Intake & Output 03/29/24 03/30/24 03/31/24 04/01/24 23:59 23:59 23:59 23:59 Intake Total 50 840 Output Total 400 1200 Balance -350 -360 Meds/Results Medications: Active Medications Generic Name Dose Route Start Last Admin Trade Name Freq PRN Reason Stop Dose Admin Amlodipine Besylate 10 mg 04/01/24 09:00 04/01/24 08:05 Amlodipine Besylate 10 Mg Tablet PO 10 mg DAILY BRIAN Administration Aspirin 81 mg 04/01/24 09:00 04/01/24 08:05 Aspirin 81 Mg Enteric Tablet PO 81 mg DAILY BRIAN Administration Atorvastatin Calcium 40 mg 04/01/24 09:00 04/01/24 08:05 Atorvastatin 40 Mg Tablet PO 40 mg DAILY BRIAN Administration Dextrose 12.5 gm 03/31/24 21:29 Dextrose 50% 25 Gm/50 Ml Syringe IV PUSH PRN PRN Hypoglycemia Protocol Doxycycline Hyclate 100 mg 04/01/24 09:00 04/01/24 08:06 Doxycycline Hyclate 100 Mg Tablet PO 100 mg Q12HR BRIAN Administration Enoxaparin Sodium 40 mg 04/01/24 09:00 04/01/24 08:06 Enoxaparin 40 Mg/0.4 Ml Syringe SUB-Q 40 mg DAILY BRIAN Administration Ferrous Sulfate 325 mg 04/01/24 12:00 Ferrous Sulfate [address] BY MOUTH NOON BRIAN Furosemide 40 mg 04/01/24 09:00 04/01/24 08:03 Furosemide Inj 40 Mg/4 Ml Vial IV PUSH 40 mg BID BRIAN Administration Gabapentin 400 mg 04/01/24 09:00 04/01/24 08:05 Gabapentin 400 Mg Capsule PO 400 mg Q12HR BRIAN Administration Glucagon 1 mg 03/31/24 21:29 Glucagon For Inj 1 Mg Vial IM PRN PRN Hypoglycemia Protocol Glucose 15 gm 03/31/24 21:29 Glucose Oral Gel 15 Gm Of Glucse In 37.5 Gm Tube PO PRN PRN Hypoglycemia Protocol Hydralazine HCl 50 mg 04/01/24 06:00 04/01/24 06:11 Hydralazine Hcl 50 Mg Tablet PO 50 mg Q8HR BRIAN Administration Ceftriaxone Sodium 1 gm in 50 mls @ 100 mls/hr 04/01/24 20:00 Rocephin 1 Gm/Ns 50 Ml IVPB Q24H [facility] Insulin Aspart 2 - 5 units 04/01/24 08:00 04/01/24 09:21 Insulin Aspart (*Bkc) 100 Units/Ml SUB-Q Not Given TIDWM [facility] Protocol Linaclotide 145 mcg 04/01/24 09:00 04/01/24 08:05 Linaclotide 145 Mcg Capsule PO 145 mcg DAILY BRIAN Administration Methocarbamol 500 mg 03/31/24 22:24 Methocarbamol 500 Mg Tablet PO TID PRN muscle spasms Montelukast Sodium 10 mg 04/01/24 09:00 04/01/24 08:05 Montelukast Sodium 10 Mg Tablet PO 10 mg DAILY BRIAN Administration Perflutren Lipid Microsphere 0 ml 03/31/24 21:29 Perflutren Lipid Microspheres 1.5 Ml Vial Diluted To 10 Ml Total Volume IV PUSH 04/03/24 21:29 ONCE PRN adequate visualization Protocol Fluticasone/Salmeterol 2 puff 04/01/24 08:00 04/01/24 08:23 Fluticasone/Salmeterol 115-21 Mcg Inhaler 1 Puff INHALATION 2 puff Q12HRT BRIAN Administration Radiology Results: ITS Impressions Chest X-Ray 03/31/24 17:09 IMPRESSION: Left lower lobe atelectasis versus pneumonia with pleural effusion. Labs Labs: Laboratory Results - last 24 hr 03/31/24 03/31/24 03/31/24 17:01 17:02 20:55 WBC 12.5 H RBC 4.25 L Hgb 11.2 L Hct 33.2 L MCV 78.1 L MCH 26.4 MCHC 33.7 RDW 21.0 H Plt Count 541 H MPV 10.5 H Immature Gran % (Auto) 0.6 H Neut % (Auto) 75.9 H Lymph % (Auto) 7.5 L [place] % (Auto) 13.2 H Eos % (Auto) 2.2 Baso % (Auto) 0.6 Lymph # (Auto) 0.94 [place] # (Auto) 1.7 H Eos # (Auto) 0.3 Baso # (Auto) 0.1 Abs Immat Gran (auto) 0.07 H Absolute Neuts (auto) 9.5 H Absolute Nucleated RBC 0.000 Nucleated RBC % 0.0 PT 15.4 H INR 1.2 APTT 31.6 Sodium 134 L Potassium 4.0 Chloride 99 Carbon Dioxide 28 Anion Gap 7 BUN 43 H Creatinine 1.60 H Estim Creat Clear Calc 40 Estimated GFR 43 L Glucose 108 POC Capillary Glucose Hemoglobin A1c 6.4 H Lactic Acid 1.0 Calcium 8.7 Phosphorus Magnesium Total Bilirubin 1.0 AST 44 ALT 35 Alkaline Phosphatase 166 H Troponin I 0.018 NT-Pro-B Natriuret Pep 3680 H Total Protein 8.0 Albumin 4.1 Nasal MRSA (PCR) Influenza A (RT-PCR) Influenza B (RT-PCR) RSV (RT-PCR) SARS-CoV-2 RNA (RT-PCR) 04/01/24 04/01/24 04/01/24 00:09 02:56 05:35 WBC 11.2 H RBC 3.94 L Hgb 10.3 L Hct 30.5 L MCV 77.4 L MCH 26.1 MCHC 33.8 RDW 20.3 H Plt Count 545 H MPV 11.8 H Immature Gran % (Auto) 0.6 H Neut % (Auto) 77.5 H Lymph % (Auto) 5.9 L [place] % (Auto) 13.0 H Eos % (Auto) 2.1 Baso % (Auto) 0.9 Lymph # (Auto) 0.66 L [place] # (Auto) 1.5 H Eos # (Auto) 0.2 Baso # (Auto) 0.1 Abs Immat Gran (auto) 0.07 H Absolute Neuts (auto) 8.7 H Absolute Nucleated RBC 0.000 Nucleated RBC % 0.0 PT INR APTT Sodium 135 L Potassium 3.4 Chloride 99 Carbon Dioxide 30 Anion Gap 6 BUN 37 H Creatinine 1.50 H Estim Creat Clear Calc 43 Estimated GFR 47 L Glucose 72 POC Capillary Glucose 89 Hemoglobin A1c Lactic Acid Calcium 8.3 L Phosphorus 3.8 Magnesium 2.1 Total Bilirubin 1.0 AST 37 ALT 28 Alkaline Phosphatase 138 H Troponin I NT-Pro-B Natriuret Pep Total Protein 7.0 Albumin 3.5 Nasal MRSA (PCR) Not detected Influenza A (RT-PCR) Negative Influenza B (RT-PCR) Negative RSV (RT-PCR) Negative SARS-CoV-2 RNA (RT-PCR) Negative 04/01/24 04/01/2424 06:56 08:14 12:06 WBC RBC Hgb Hct MCV MCH MCHC RDW Plt Count MPV Immature Gran % (Auto) Neut % (Auto) Lymph % (Auto) [place] % (Auto) Eos % (Auto) Baso % (Auto) Lymph # (Auto) [place] # (Auto) Eos # (Auto) Baso # (Auto) Abs Immat Gran (auto) Absolute Neuts (auto) Absolute Nucleated RBC Nucleated RBC % PT INR APTT Sodium Potassium Chloride Carbon Dioxide Anion Gap BUN Creatinine Estim Creat Clear Calc Estimated GFR Glucose POC Capillary Glucose 86 80 127 H Hemoglobin A1c Lactic Acid Calcium Phosphorus Magnesium Total Bilirubin AST ALT Alkaline Phosphatase Troponin I NT-Pro-B Natriuret Pep Total Protein Albumin Nasal MRSA (PCR) Influenza A (RT-PCR) Influenza B (RT-PCR) RSV (RT-PCR) SARS-CoV-2 RNA (RT-PCR) Quality VTE Prophylaxis VTE prophylaxis: pharmacologic ordered
[2024-04-01] MEDS: FERROUS SULFATE 325 MG TABLET DR BY MOUTH (13:17)
--- NOTE | 2024-04-01 13:43 | PM.CNCAR ---
Assessment and Plan Assessment and plan (1) Acute on chronic diastolic (congestive) heart failure: Code(s): I50.33 - Acute on chronic diastolic (congestive) heart failure Status: Acute Assessment and Plan: Acute on chronic diastolic heart failure presenting with dyspnea, bilateral lower extremity edema, and rapid weight gain Agree with IV furosemide 40mg b.i.d. Dailt weights Strict I&O Echo is pending Will discontinue amlodipine and shift him to spironolactone Can also consider adding jardiance for HFpEF (2) Atrial fibrillation: Code(s): I48.91 - Unspecified atrial fibrillation Status: Acute Assessment and Plan: Chronic at this point. Rate is controlled. He is not on anticoagulation as his left atrial appendage has been surgically ligated. (3) Aortic stenosis: Code(s): I35.0 - Nonrheumatic aortic (valve) stenosis Status: Acute Assessment and Plan: Status post SAVR. History of Present Illness History of Present Illness Consult date/time: 04/01/24 13:43 Requesting physician: Lindy De Paz APRN Consult reason: congestive heart failure Reason For Visit: SOB, CHF exacerbation, possible pneumonia Narrative: This is a 69-year-old male with aortic valve stenosis (status post bio AVR 2023), atrial fibrillation with history of Maze procedure, left atrial appendage ligation, chronic diastolic congestive heart failure, hypertension, and stage 3 chronic kidney disease. Mr. Beckman follows in our office with Dr. Lauren. He reports increased shortness of breath starting about two weeks ago. He also had some bilateral lower extremity edema which worsened in the past week when he was started on amlodipine. Also reports orthopnea and states he has only slept in a chair since SAVR procedure. He has had a 9 lb weight gain in 10 days.He is feeling better after receiving some IV diuretic. Review of Systems Review of Systems: All systems reviewed & are unremarkable except as noted in HPI and below [facility] Family History Family History Other Acute kidney failure Cancer Cancer of kidney Hypertension Throat cancer Social History Social History Smoking status: Never smoker Substance use type: does not use Do You Feel Safe in your Home?: Yes Lack of Transportation: No Lack of Food: Never True Current Housing: I Have Housing Concerned About Future Housing: No Difficulty Paying Gas/Electric Bills: No Difficulty Paying for Meds: No Currently Unemployed: No Education: Master's Degree or Higher Difficulty w/ Childcare or Family Care: No Spiritual care concerns: No Meds Home Medications and Allergies Home Medications Medication Instructions Recorded Confirmed Type amlodipine 10 mg tablet 10 mg PO DAILY 03/31/24 03/31/24 History aspirin 81 mg tablet,delayed 81 mg PO DAILY 03/31/24 03/31/24 History release atorvastatin 40 mg tablet 40 mg PO DAILY 03/31/24 03/31/24 History ferrous sulfate 325 mg (65 mg 325 mg PO DAILY 03/31/24 03/31/24 History iron) tablet fluticasone 250 mcg-salmeterol 50 2 inh inhalation DAILY 03/31/24 03/31/24 History mcg/dose blistr powdr for inhalation (Wixela Inhub) furosemide 40 mg tablet 40 mg PO DAILY 03/31/24 03/31/24 History gabapentin 400 mg capsule 400 mg PO BID 03/31/24 03/31/24 History hydralazine 50 mg tablet 50 mg PO TID 03/31/24 03/31/24 History linaclotide 145 mcg capsule 145 mcg PO DAILY 03/31/24 03/31/24 History (Linzess) metformin 500 mg tablet 500 mg PO DAILY 03/31/24 03/31/24 History methocarbamol 500 mg tablet 500 mg PO TID PRN muscle spasms 03/31/24 03/31/24 History montelukast 10 mg tablet 10 mg PO DAILY 03/31/24 03/31/24 History Allergies Allergy/AdvReac Type Severity Reaction Status Date / Time No Known Allergies Allergy Verified 03/31/24 20:36 Vital Signs Vital Signs - 24 hr 03/31/24 16:56 03/31/24 19:39 03/31/24 19:40 Temperature 36.5 C Pulse Rate 68 68 68 Respiratory Rate 17 21 H Blood Pressure 151/59 H 142/64 H Pulse Oximetry 97 94 Oxygen Delivery 03/31/24 19:52 03/31/24 20:00 03/31/24 20:01 Temperature Pulse Rate 72 67 65 Respiratory Rate 13 23 H 26 H Blood Pressure 140/60 Pulse Oximetry Oxygen Delivery 03/31/24 20:12 03/31/24 20:15 03/31/24 20:16 Temperature Pulse Rate 68 70 68 Respiratory Rate 17 21 H 19 Blood Pressure 143/67 H 147/65 H Pulse Oximetry Oxygen Delivery 03/31/24 20:30 03/31/24 20:31 03/31/24 20:45 Temperature Pulse Rate 68 67 68 Respiratory Rate 23 H 17 20 Blood Pressure 135/66 Pulse Oximetry Oxygen Delivery 03/31/24 20:46 03/31/24 21:12 03/31/24 21:39 Temperature Pulse Rate 65 69 69 Respiratory Rate 16 23 H 23 H Blood Pressure 137/57 L 149/61 H 139/66 Pulse Oximetry 96 Oxygen Delivery 03/31/24 22:11 03/31/24 22:00 04/01/24 06:00 Temperature 36.3 C L Pulse Rate 68 Respiratory Rate 16 Blood Pressure 142/53 H Pulse Oximetry 96 93 Oxygen Delivery Room Air Room Air 03/31/24 22:30 04/01/24 07:55 04/01/24 08:05 Temperature 36.1 C L 36.2 C L Pulse Rate 64 72 72 Respiratory Rate 16 18 18 Blood Pressure 127/55 L 140/59 L Pulse Oximetry 93 92 92 Oxygen Delivery Room Air 04/01/24 08:23 04/01/24 13:14 Temperature 36.2 C L Pulse Rate 58 L Respiratory Rate 16 Blood Pressure 132/48 L Pulse Oximetry 94 95 Oxygen Delivery Room Air Exam Const: General: comfortable, no acute distress, alert and awake Orientation/consciousness: patient oriented x3 HENMT: Head: normal to inspection Eyes: General: appearance normal, both eyes and all related structures Pupils: Equal, round and reactive pupils present Neck: Neck: normal visual inspection, supple and no JVD Carotids: normal carotid upstroke Resp: Effort & Inspection: normal respiratory effort Auscultation: not clear to auscultation bilaterally and rales bilateral Cardio: Rate: regular rate Rhythm: abnormal rhythm Heart sounds: S1 normal heart sound present, S2 normal heart sound present and Murmur heart sound present systolic GI: Auscultation: normal bowel sounds Skin: General skin exam: normal color Neuro: General: patient oriented x3 Cranial nerves: Yes Equal, round and reactive pupils present Extrem: General: abnormal to inspection Other: bilateral pretibial and pedal 2+ pitting edema Psych: Appearance: grossly normal Mental Status: mental status grossly normal Results Labs and Meds 04/01/24 05:35 04/01/24 05:35 Lab results: Cardiac Enzymes 03/31/24 04/01/24 Range/Units 17:02 05:35 AST 44 37 (17-59) U/L Troponin I 0.018 (0.000-0.034) ng/mL Coagulation 03/31/24 Range/Units 17:02 PT 15.4 H (11.1-14.7) Seconds APTT 31.6 (22.3-36.8) Seconds CBC 03/31/24 04/01/24 Range/Units 17:02 05:35 WBC 12.5 H 11.2 H (4.5-10.0) K/mm3 RBC 4.25 L 3.94 L (4.6-6.20) M/mm3 Hgb 11.2 L 10.3 L (14.0-18.0) g/dL Hct 33.2 L 30.5 L (42.0-52.0) % Plt Count 541 H 545 H (150-375) k/mm3 Lymph # (Auto) 0.94 0.66 L (0.9-3.2) K/mm3 [place] # (Auto) 1.7 H 1.5 H (0.1-0.6) K/mm3 Eos # (Auto) 0.3 0.2 (0-0.3) K/mm3 Baso # (Auto) 0.1 0.1 (0.0-0.1) K/mm3 Comprehensive Metabolic Panel 03/31/24 04/01/24 Range/Units 17:02 05:35 Sodium 134 L 135 L (137-145) mmol/L Potassium 4.0 3.4 (3.4-5.0) mmol/L Chloride 99 99 (98-107) mmol/L Carbon Dioxide 28 30 (22-30) mmol/L BUN 43 H 37 H (9-20) mg/dL Creatinine 1.60 H 1.50 H (0.7-1.3) mg/dL Glucose 108 72 (65-110) mg/dL Calcium 8.7 8.3 L (8.4-10.2) mg/dL AST 44 37 (17-59) U/L ALT 35 28 (6-50) U/L Alkaline Phosphatase 166 H 138 H (38-126) U/L Total Protein 8.0 7.0 (6.3-8.2) g/dL Albumin 4.1 3.5 (3.5-5.1) g/dL Intake and Output 03/31/24 04/01/24 04/01/24 23:59 07:59 15:59 Intake Total 50 600 240 Output Total 400 1200 Balance -350 -600 240 Intake: IV 50 cefTRIAXone 1 GM/NS 50 ML 1 gm 50 In 50 ml @ 100 mls/hr IVPB ONCE STA Rx#:[id number] Oral 600 240 Output: Urine 400 1200
[2024-04-01 17:09] LABS: Glucose Point of Care 128 mg/dl (65-105)
[2024-04-01 20:30] LABS: Glucose Point of Care 114 mg/dl (65-105)
[2024-04-02 05:42] LABS: Basophils Absolute Auto 0.1 K/mm3 (0.0-0.1); Basophils Percent Auto 0.4 % (0.2-1.2); Eosinophils Absolute Auto 0.2 K/mm3 (0-0.3); Eosinophils Percent Auto 1.3 % (0-4.4); Hematocrit 30.8 % (42.0-52.0); Hemoglobin 10.7 g/dL (14.0-18.0); Immature Granulocyte Absolute 0.03 K/mm3 (0.00-0.031); Immature Granulocyte Percent A 0.2 % (0-0.5); Lymphocytes Absolute Auto 0.68 K/mm3 (0.9-3.2); Lymphocytes Percent Auto 5.6 % (18.3-44.2); Mean Corpuscular HGB Conc 34.7 g/dl (32-36); Mean Corpuscular Hemoglobin 26.9 pg (26-34); Mean Corpuscular Volume 77.4 fl (80-100); Mean Platelet Volume 11.8 fl (7.4-10.4); Monocytes Absolute Auto 1.7 K/mm3 (0.1-0.6); Neutrophils Absolute Auto 9.5 K/mm3 (1.3-6.7); Neutrophils Percent Auto 78.5 % (45.5-73.1); Platelet Count Result 558 k/mm3 (150-375); Red Blood Count 3.98 M/mm3 (4.6-6.20); Red Cell Distribution Width 20.3 % (11.5-14.5); White Blood Count 12.1 K/mm3 (4.5-10.0)
[2024-04-02 05:51] LABS: Alanine Aminotransferase 25 U/L (6-50); Albumin Level 3.7 g/dL (3.5-5.1); Alkaline Phosphatase 139 U/L (38-126); Anion Gap 8 mmol/L (4-12); Aspartate Amino Transferase 30 U/L (17-59); Bilirubin,Total 1.1 mg/dL (0.2-1.3); Blood Urea Nitrogen 34 mg/dL (9-20); Calcium 8.6 mg/dL (8.4-10.2); Carbon Dioxide 31 mmol/L (22-30); Chloride 98 mmol/L (98-107); Estimated CRCL calculation 45 ml/min; Estimated Glomerular Filt Rate 51; Glucose 104 mg/dL (65-110); Magnesium 2.1 mg/dL (1.6-2.3); Phosphorus 3.8 mg/dL (2.5-4.5); Potassium 3.1 mmol/L (3.4-5.0); Sodium 137 mmol/L (137-145)
[2024-04-02 06:00] VITALS: BP 144/53; PULSE 68; RESP 20; TEMP 36.6; O2SAT 90
[2024-04-02] MEDS: hydrALAZINE HCL 50 MG TABLET PO ×3 (06:16→20:52)
--- NOTE | 2024-04-02 07:12 | P.PNIM_ITS ---
Progress Note: A&P Assessment and Plan (1) Community acquired pneumonia: Code(s): J18.9 - Pneumonia, unspecified organism Status: Acute Assessment and Plan: CXR: Left lower lobe atelectasis versus pneumonia with pleural effusion. - Complicating Factors: CHF exacerbation - started on CAP tx: Ceftriaxone and Azithromycin started in the ED, Azithromycin but change to doxycycline PO given prolonged QTC with LBBB on EKG - MRSA negative - Viral PCR: negative for Flu/COVID/RSV - Chlamydia pneumoniae, mycoplasma, pneumococcal antigen and Legionella antigen testing pending - Blood cultures obtained on 03/31: NGTD - no supplemental O2 requirement - supportive treatment - Monitor vital signs, I&Os, neuro status and patient is a fall risk - Follow WBC, serum electrolytes, temperature curves and cultures (2) Congestive heart failure: Code(s): I50.9 - Heart failure, unspecified Status: Acute Assessment and Plan: - Symptoms: Worsening dyspnea and worsening bilateral lower extremity swelling - Sees Dr. Lauren as outpatient, Cardiology consult - Current medications: Patient on furosemide 40 mg at baseline, recently increased to 40 mg BID - Supportive treatment Tyl and ibu prn Nebs prn - BNP: 3680 - EKG: Sinus rhythm with first degree AV block, LBBB - Chest XR: Left lower lobe atelectasis versus pneumonia with pleural effusion. - Echo 04/01: LVEF 60-65% - LE dopplers showed no DVT. - IV Lasix 80 mg given in ER, transitioned to 40 mg IV BID - Monitor vital signs, I&Os, BUN/creatinine, daily weights, neuro status and patient is a fall risk - Monitor serum electrolytes, Keep serum Potassium>4 and serum Magnesium>2 and CBC -Cardiology consulted discontinued Amlodipine and started Spironolactone 25 mg PO daily started on Jardiance 10 mg daily continue with lasix 40 mg IV BID Urine output yesterday not at goal. Will give a one time dose of Metolazone to see if this helps facilitate diuresis. (3) QT prolongation: Code(s): R94.31 - Abnormal electrocardiogram [ECG] [EKG] Status: Acute Assessment and Plan: -EKG with prolonged QTC 503 as well as LBBB, no prior EKG on file -Changed azithromycin to doxycycline for treatment of pneumonia (4) Hypertension: Code(s): I10 - Essential (primary) hypertension Status: Acute Assessment and Plan: Chronic - Continue hydralazine 50 mg q8H - Cardiology consulted for CHF and discontinued Amlodipine and started Spironolactone 25 mg PO daily - Monitor (5) Diabetes mellitus: Code(s): E11.9 - Type 2 diabetes mellitus without complications Status: Acute Assessment and Plan: - hypoglycemia protocol - POC blood glucose ACHS - home medication - metformin 500 mg daily - correct regimen ordered - low dose TIDWM and HS - A1C 6.4 (6) Atrial fibrillation: Code(s): I48.91 - Unspecified atrial fibrillation Status: Acute Assessment and Plan: Chronic, rate is controlled. Not on anticoagulation as his left atrial appendage has been surgically ligated. Time Spent With Patient Time with patient: 25 - 35 minutes Subjective Date/time seen: 04/02/24 07:12 Interval history: 69-year-old male patient with a past medical history of hypertension, congestive heart failure, chronic constipation type 2 diabetes and recent aortic valve replacement with left atrial appendage closure and Maze procedure who presents to the emergency department with bilateral lower extremities swelling and progressive shortness of breath with decreased activity tolerance. patient is pleasant sitting up comfortably in his chair with family at bedside. He states that he is feeling worse today with increased shortness of breath and associated weakness. He remains on antibiotics for the pneumonia. He was started on spironolactone and jardiance by cardiology for the CHF. He also notes that he was unable to get any sleep last night. Per patient is on trazodone nightly. Will resume. patient has no other complaints denying chest pain, palpitations, nausea /vomiting, dizziness/lightheadedness, and abdominal pain. Review of Systems Review of Systems: All systems reviewed & are unremarkable except as noted in HPI and below Exam Narrative: AF HR 68 RR 20 SpO2 91 BP 144/53 General: male in no acute respiratory distress who is nontoxic appearing, sitting up in his chair HEENT: Normocephalic. Atraumatic. Extraocular movement intact. Sclera clear and anicteric. No facial asymmetry. Chest: Lungs are diminished with slight rales in the lower lobes on auscultation bilaterally. No wheezes or crackles. CV: Heart was rate controlled with irregularly irregular rhythm. S1/S2. No murmurs, gallops, or rubs. Abd: Abdomen was soft. Nontender. Nondistended. Positive bowel sounds. No organomegaly or masses. Ext: No clubbing, cyanosis. 2+ DP pulses bilaterally. Mild bilateral lower extremity edema. Neuro: Patient is alert and oriented x4. Cranial nerves 2-12 are intact. Speech is clear. Objective Data Vital Signs Vital Signs: Vital Signs - 24 hr 04/01/24 07:55 04/01/24 08:05 04/01/24 08:23 Temperature 97.2 F L Pulse Rate 72 72 Respiratory Rate 18 18 Blood Pressure 140/59 L Pulse Oximetry 92 92 94 Oxygen Delivery Room Air Room Air 04/01/24 13:14 04/01/24 16:38 04/01/24 20:21 Temperature 97.2 F L 97.1 F L 99.2 F Pulse Rate 58 L 83 62 Respiratory Rate 16 18 20 Blood Pressure 132/48 L 115/56 L 132/52 L Pulse Oximetry 95 92 93 Oxygen Delivery 04/01/24 20:50 04/01/24 20:51 04/01/24 20:00 Temperature Pulse Rate 67 67 Respiratory Rate 18 18 Blood Pressure Pulse Oximetry 91 91 Oxygen Delivery Room Air Room Air 04/02/24 06:00 Temperature 97.9 F Pulse Rate 68 Respiratory Rate 20 Blood Pressure 144/53 H Pulse Oximetry 90 Oxygen Delivery Intake/Output Intake/Output: Intake & Output 03/30/24 03/31/24 04/01/24 04/02/24 23:59 23:59 23:59 23:59 Intake Total 50 1500 500 Output Total 400 1200 300 Balance -350 300 200 Meds/Results Medications: Active Medications Generic Name Dose Route Start Last Admin Trade Name Freq PRN Reason Stop Dose Admin Aspirin 81 mg 04/01/24 09:00 04/01/24 08:05 Aspirin 81 Mg Enteric Tablet PO 81 mg DAILY BRIAN Administration Atorvastatin Calcium 40 mg 04/01/24 09:00 04/01/24 08:05 Atorvastatin 40 Mg Tablet PO 40 mg DAILY BRIAN Administration Dextrose 12.5 gm 03/31/24 21:29 Dextrose 50% 25 Gm/50 Ml Syringe IV PUSH PRN PRN Hypoglycemia Protocol Doxycycline Hyclate 100 mg 04/01/24 09:00 04/01/24 20:33 Doxycycline Hyclate 100 Mg Tablet PO 100 mg Q12HR BRIAN Administration Empagliflozin 10 mg 04/02/24 09:00 Empagliflozin 10 Mg Tablet PO DAILY BRIAN Enoxaparin Sodium 40 mg 04/01/24 09:00 04/01/24 08:06 Enoxaparin 40 Mg/0.4 Ml Syringe SUB-Q 40 mg DAILY BRIAN Administration Ferrous Sulfate 325 mg 04/01/24 12:00 04/01/24 13:17 Ferrous Sulfate [address] BY MOUTH 325 mg NOON BRIAN Administration Furosemide 40 mg 04/01/24 09:00 04/01/24 16:40 Furosemide Inj 40 Mg/4 Ml Vial IV PUSH 40 mg BID BRIAN Administration Gabapentin 400 mg 04/01/24 09:00 04/01/24 20:34 Gabapentin 400 Mg Capsule PO 400 mg Q12HR BRIAN Administration Glucagon 1 mg 03/31/24 21:29 Glucagon For Inj 1 Mg Vial IM PRN PRN Hypoglycemia Protocol Glucose 15 gm 03/31/24 21:29 Glucose Oral Gel 15 Gm Of Glucse In 37.5 Gm Tube PO PRN PRN Hypoglycemia Protocol Hydralazine HCl 50 mg 04/01/24 06:00 04/02/24 06:16 Hydralazine Hcl 50 Mg Tablet PO 50 mg Q8HR BRIAN Administration Ceftriaxone Sodium 1 gm in 50 mls @ 100 mls/hr 04/01/24 20:00 04/01/24 20:34 Rocephin 1 Gm/Ns 50 Ml IVPB 100 mls/hr Q24H BRIAN Administration Insulin Aspart 2 - 5 units 04/01/24 08:00 04/01/24 17:58 Insulin Aspart (*Bkc) 100 Units/Ml SUB-Q Not Given TIDWM BRIAN Protocol Linaclotide 145 mcg 04/01/24 09:00 04/01/24 08:05 Linaclotide 145 Mcg Capsule PO 145 mcg DAILY BRIAN Administration Methocarbamol 500 mg 03/31/24 22:24 Methocarbamol 500 Mg Tablet PO TID PRN muscle spasms Montelukast Sodium 10 mg 04/01/24 09:00 04/01/24 08:05 Montelukast Sodium 10 Mg Tablet PO 10 mg DAILY BRIAN Administration Perflutren Lipid Microsphere 0 ml 03/31/24 21:29 Perflutren Lipid Microspheres 1.5 Ml Vial Diluted To 10 Ml Total Volume IV PUSH 04/03/24 21:29 ONCE PRN adequate visualization Protocol Fluticasone/Salmeterol 2 puff 04/01/24 08:00 04/01/24 20:49 Fluticasone/Salmeterol 115-21 Mcg Inhaler 1 Puff INHALATION 2 puff Q12HRT [facility] Administration Spironolactone 25 mg 04/02/24 09:00 Spironolactone 25 Mg Tablet PO QAM [facility] Radiology Results: ITS Impressions Chest X-Ray 03/31/24 17:09 IMPRESSION: Left lower lobe atelectasis versus pneumonia with pleural effusion. Venous Doppler Study 04/01/24 15:24 IMPRESSION: 1. No deep venous thrombosis in either lower limb. Labs Labs: Laboratory Results - last 24 hr 04/01/24 04/01/24 04/01/24 06:56 08:14 12:06 WBC RBC Hgb Hct MCV MCH MCHC RDW Plt Count MPV Immature Gran % (Auto) Neut % (Auto) Lymph % (Auto) [place] % (Auto) Eos % (Auto) Baso % (Auto) Lymph # (Auto) [place] # (Auto) Eos # (Auto) Baso # (Auto) Abs Immat Gran (auto) Absolute Neuts (auto) Absolute Nucleated RBC Nucleated RBC % Sodium Potassium Chloride Carbon Dioxide Anion Gap BUN Creatinine Estim Creat Clear Calc Estimated GFR Glucose POC Capillary Glucose 86 80 127 H Calcium Phosphorus Magnesium Total Bilirubin AST ALT Alkaline Phosphatase Total Protein Albumin 04/01/24 04/01/24 04/02/24 17:04 20:16 05:19 WBC 12.1 H RBC 3.98 L Hgb 10.7 L Hct 30.8 L MCV 77.4 L MCH 26.9 MCHC 34.7 RDW 20.3 H Plt Count 558 H MPV 11.8 H Immature Gran % (Auto) 0.2 Neut % (Auto) 78.5 H Lymph % (Auto) 5.6 L [place] % (Auto) 14.0 H Eos % (Auto) 1.3 Baso % (Auto) 0.4 Lymph # (Auto) 0.68 L [place] # (Auto) 1.7 H Eos # (Auto) 0.2 Baso # (Auto) 0.1 Abs Immat Gran (auto) 0.03 Absolute Neuts (auto) 9.5 H Absolute Nucleated RBC 0.000 Nucleated RBC % 0.0 Sodium 137 Potassium 3.1 L Chloride 98 Carbon Dioxide 31 H Anion Gap 8 BUN 34 H Creatinine 1.40 H Estim Creat Clear Calc 45 Estimated GFR 51 L Glucose 104 POC Capillary Glucose 128 H 114 H Calcium 8.6 Phosphorus 3.8 Magnesium 2.1 Total Bilirubin 1.1 AST 30 ALT 25 Alkaline Phosphatase 139 H Total Protein 7.0 Albumin 3.7 Quality VTE Prophylaxis VTE prophylaxis: pharmacologic ordered
[2024-04-02] MEDS: FLUTICASONE/SALMETEROL 115-21 MCG INHALER 1 PUFF 2 PUFF INHALATION ×2 (08:08→20:06)
[2024-04-02 08:11] VITALS: RESP 20; O2SAT 91
[2024-04-02 08:21] LABS: Glucose Point of Care 110 mg/dl (65-105)
[2024-04-02] MEDS: ATORVASTATIN 40 MG TABLET PO (08:36)
[2024-04-02] MEDS: ASPIRIN 81 MG ENTERIC TABLET PO (08:36)
[2024-04-02] MEDS: SPIRONOLACTONE 25 MG TABLET PO (08:37)
[2024-04-02] MEDS: EMPAGLIFLOZIN 10 MG TABLET PO (08:37)
[2024-04-02] MEDS: MONTELUKAST SODIUM 10 MG TABLET PO (08:37)
[2024-04-02] MEDS: GABAPENTIN 400 MG CAPSULE PO ×2 (08:37→20:44)
[2024-04-02] MEDS: LINACLOTIDE 145 MCG CAPSULE PO (08:37)
[2024-04-02] MEDS: FUROSEMIDE INJ 40 MG/4 ML VIAL IV PUSH ×2 (08:37→17:02)
[2024-04-02] MEDS: DOXYCYCLINE HYCLATE 100 MG TABLET PO ×2 (08:37→20:44)
[2024-04-02] MEDS: ENOXAPARIN 40 MG/0.4 ML SYRINGE SUB-Q (08:37)
--- NOTE | 2024-04-02 09:10 | P.PNCA_ITS ---
Progress Note: A&P Assessment and Plan (1) Acute on chronic heart failure with preserved ejection fraction (HFpEF, >= 50%): Code(s): I50.33 - Acute on chronic diastolic (congestive) heart failure Status: Acute Assessment and Plan: Echocardiogram shows LVEF 60-65%. Continue with Lasix 40mg IV BID for now. Urine output yesterday not at goal. Will give a one time dose of Metolazone to see if this helps facilitate diuresis. Please monitor strict I/Os. Amlodipine discontinued due to lower extremity edema. Started on Spironolactone, continue. Started Jardiance, continue. (2) Atrial fibrillation: Code(s): I48.91 - Unspecified atrial fibrillation Status: Acute Assessment and Plan: Chronic at this point. Rate is controlled. He is not on anticoagulation as his left atrial appendage has been surgically ligated. (3) Aortic stenosis: Code(s): I35.0 - Nonrheumatic aortic (valve) stenosis Status: Acute Assessment and Plan: Status post SAVR. Echo with normal appearing bioprosthetic valve. (4) Hypertension: Code(s): I10 - Essential (primary) hypertension Status: Acute Assessment and Plan: Continue Lasix, Hydralazine, Spironolactone. (5) Diabetes mellitus: Code(s): E11.9 - Type 2 diabetes mellitus without complications Status: Acute Assessment and Plan: Management as per primary team. Subjective Date/time seen: 04/02/24 09:11 Interval history: Reason for visit: Acute on chronic heart failure with preserved LVEF HPI: This is a 69-year-old male with aortic valve stenosis (status post bio AVR 2023), atrial fibrillation with history of Maze procedure, left atrial appendage ligation, chronic diastolic congestive heart failure, hypertension, and stage 3 chronic kidney disease. Mr. Beckman follows in our office with Dr. Lauren. He reports increased shortness of breath starting about two weeks ago. He also had some bilateral lower extremity edema which worsened in the past week when he was started on amlodipine. Also reports orthopnea and states he has only slept in a chair since SAVR procedure. He has had a 9 lb weight gain in 10 days. He is feeling better after receiving some IV diuretic. Date of service 04/02: Swelling is getting better. Did not sleep well last night. Review of Systems Review of Systems: All systems reviewed & are unremarkable except as noted in HPI and below (HPI) Exam Const: General: comfortable and no acute distress HENMT: Mouth: Yes moist mucous membranes Eyes: General: appearance normal, both eyes and all related structures Sclera: sclerae normal Resp: Effort & Inspection: normal respiratory effort Cardio: Rate: regular rate Rhythm: abnormal rhythm irregularly irregular Other: + Bilateral lower extremity edema Skin: General skin exam: normal color Psych: Mental Status: mental status grossly normal Affect: normal affect Objective Data Vital Signs Vital Signs: Vital Signs - 24 hr 04/01/24 13:14 04/01/24 16:38 04/01/24 20:21 Temperature 36.2 C L 36.2 C L 37.3 C Pulse Rate 58 L 83 62 Respiratory Rate 16 18 20 Blood Pressure 132/48 L 115/56 L 132/52 L Pulse Oximetry 95 92 93 Oxygen Delivery 04/01/24 20:50 04/01/24 20:51 04/01/24 20:00 Temperature Pulse Rate 67 67 Respiratory Rate 18 18 Blood Pressure Pulse Oximetry 91 91 Oxygen Delivery Room Air Room Air 04/02/24 06:00 04/02/24 08:11 04/02/24 08:11 Temperature 36.6 C Pulse Rate 68 Respiratory Rate 20 20 Blood Pressure 144/53 H Pulse Oximetry 90 91 Oxygen Delivery Room Air Intake/Output Intake/Output: Intake & Output 03/30/24 03/31/24 04/01/24 04/02/24 23:59 23:59 23:59 23:59 Intake Total 50 1500 500 Output Total 400 1200 300 Balance -350 300 200 Meds/Results Medications: Active Medications Generic Name Dose Route Start Last Admin Trade Name Freq PRN Reason Stop Dose Admin Aspirin 81 mg 04/01/24 09:00 04/02/24 08:36 Aspirin 81 Mg Enteric Tablet PO 81 mg DAILY BRIAN Administration Atorvastatin Calcium 40 mg 04/01/24 09:00 04/02/24 08:36 Atorvastatin 40 Mg Tablet PO 40 mg DAILY BRIAN Administration Dextrose 12.5 gm 03/31/24 21:29 Dextrose 50% 25 Gm/50 Ml Syringe IV PUSH PRN PRN Hypoglycemia Protocol Doxycycline Hyclate 100 mg 04/01/24 09:00 04/02/24 08:37 Doxycycline Hyclate 100 Mg Tablet PO 100 mg Q12HR BRIAN Administration Empagliflozin 10 mg 04/02/24 09:00 04/02/24 08:37 Empagliflozin 10 Mg Tablet PO 10 mg DAILY BRIAN Administration Enoxaparin Sodium 40 mg 04/01/24 09:00 04/02/24 08:37 Enoxaparin 40 Mg/0.4 Ml Syringe SUB-Q 40 mg DAILY BRIAN Administration Ferrous Sulfate 325 mg 04/01/24 12:00 04/01/24 13:17 Ferrous Sulfate [address] BY MOUTH 325 mg NOON BRIAN Administration Furosemide 40 mg 04/01/24 09:00 04/02/24 08:37 Furosemide Inj 40 Mg/4 Ml Vial IV PUSH 40 mg BID BRIAN Administration Gabapentin 400 mg 04/01/24 09:00 04/02/24 08:37 Gabapentin 400 Mg Capsule PO 400 mg Q12HR BRIAN Administration Glucagon 1 mg 03/31/24 21:29 Glucagon For Inj 1 Mg Vial IM PRN PRN Hypoglycemia Protocol Glucose 15 gm 03/31/24 21:29 Glucose Oral Gel 15 Gm Of Glucse In 37.5 Gm Tube PO PRN PRN Hypoglycemia Protocol Hydralazine HCl 50 mg 04/01/24 06:00 04/02/24 06:16 Hydralazine Hcl 50 Mg Tablet PO 50 mg Q8HR BRIAN Administration Ceftriaxone Sodium 1 gm in 50 mls @ 100 mls/hr 04/01/24 20:00 04/01/24 20:34 Rocephin 1 Gm/Ns 50 Ml IVPB 100 mls/hr Q24H BRIAN Administration Insulin Aspart 2 - 5 units 04/01/24 08:00 04/02/24 08:26 Insulin Aspart (*Bkc) 100 Units/Ml SUB-Q Not Given TIDWM BRIAN Protocol Linaclotide 145 mcg 04/01/24 09:00 04/02/24 08:37 Linaclotide 145 Mcg Capsule PO 145 mcg DAILY BRIAN Administration Methocarbamol 500 mg 03/31/24 22:24 Methocarbamol 500 Mg Tablet PO TID PRN muscle spasms Montelukast Sodium 10 mg 04/01/24 09:00 04/02/24 08:37 Montelukast Sodium 10 Mg Tablet PO 10 mg DAILY BRIAN Administration Perflutren Lipid Microsphere 0 ml 03/31/24 21:29 Perflutren Lipid Microspheres 1.5 Ml Vial Diluted To 10 Ml Total Volume IV PUSH 11/28/24 21:29 ONCE PRN adequate visualization Protocol Fluticasone/Salmeterol 2 puff 04/01/24 08:00 04/02/24 08:08 Fluticasone/Salmeterol 115-21 Mcg Inhaler 1 Puff INHALATION 2 puff Q12HRT BRIAN Administration Spironolactone 25 mg 04/02/24 09:00 04/02/24 08:37 Spironolactone 25 Mg Tablet PO 25 mg QAM BRIAN Administration Radiology Results: ITS Impressions Chest X-Ray 03/31/24 17:09 IMPRESSION: Left lower lobe atelectasis versus pneumonia with pleural effusion. Venous Doppler Study 04/01/24 15:24 IMPRESSION: 1. No deep venous thrombosis in either lower limb. Labs Labs: Laboratory Results - last 24 hr 04/01/24 04/01/24 04/01/24 12:06 17:04 20:16 WBC RBC Hgb Hct MCV MCH MCHC RDW Plt Count MPV Immature Gran % (Auto) Neut % (Auto) Lymph % (Auto) [place] % (Auto) Eos % (Auto) Baso % (Auto) Lymph # (Auto) [place] # (Auto) Eos # (Auto) Baso # (Auto) Abs Immat Gran (auto) Absolute Neuts (auto) Absolute Nucleated RBC Nucleated RBC % Sodium Potassium Chloride Carbon Dioxide Anion Gap BUN Creatinine Estim Creat Clear Calc Estimated GFR Glucose POC Capillary Glucose 127 H 128 H 114 H Calcium Phosphorus Magnesium Total Bilirubin AST ALT Alkaline Phosphatase Total Protein Albumin 04/02/24 04/02/24 05:19 08:16 WBC 12.1 H RBC 3.98 L Hgb 10.7 L Hct 30.8 L MCV 77.4 L MCH 26.9 MCHC 34.7 RDW 20.3 H Plt Count 558 H MPV 11.8 H Immature Gran % (Auto) 0.2 Neut % (Auto) 78.5 H Lymph % (Auto) 5.6 L [place] % (Auto) 14.0 H Eos % (Auto) 1.3 Baso % (Auto) 0.4 Lymph # (Auto) 0.68 L [place] # (Auto) 1.7 H Eos # (Auto) 0.2 Baso # (Auto) 0.1 Abs Immat Gran (auto) 0.03 Absolute Neuts (auto) 9.5 H Absolute Nucleated RBC 0.000 Nucleated RBC % 0.0 Sodium 137 Potassium 3.1 L Chloride 98 Carbon Dioxide 31 H Anion Gap 8 BUN 34 H Creatinine 1.40 H Estim Creat Clear Calc 45 Estimated GFR 51 L Glucose 104 POC Capillary Glucose 110 H Calcium 8.6 Phosphorus 3.8 Magnesium 2.1 Total Bilirubin 1.1 AST 30 ALT 25 Alkaline Phosphatase 139 H Total Protein 7.0 Albumin 3.7
[2024-04-02] MEDS: POTASSIUM CHLORIDE 20 MEQ PACKET (FOR LIQUID) 40 MEQ PO (10:04)
[2024-04-02] MEDS: metOLazone 5 MG TABLET PO (10:05)
[2024-04-02 12:14] LABS: Glucose Point of Care 115 mg/dl (65-105)
[2024-04-02] MEDS: FERROUS SULFATE 325 MG TABLET DR BY MOUTH (12:37)
[2024-04-02] MEDS: polyethylene glycoL 3350 17 GM POWD.PACK PO (12:57)
[2024-04-02 14:00] VITALS: BP 125/43; PULSE 65; RESP 15; TEMP 36.5; O2SAT 93
[2024-04-02 17:04] LABS: Glucose Point of Care 100 mg/dl (65-105)
[2024-04-02 20:00] VITALS: PULSE 61; RESP 12; O2SAT 97
[2024-04-02] MEDS: traZODone HCL 25 MG TABLET PO (20:44)
[2024-04-02] MEDS: methocarbamoL 500 MG TABLET PO (20:44)
[2024-04-02 21:04] LABS: Glucose Point of Care 111 mg/dl (65-105)
[2024-04-02 21:09] VITALS: BP 128/47; PULSE 61; RESP 12; TEMP 37.3; O2SAT 97
[2024-04-03 05:30] VITALS: BP 129/50; PULSE 73; RESP 16; TEMP 36.9; O2SAT 89
[2024-04-03 05:46] LABS: Basophils Absolute Auto 0.1 K/mm3 (0.0-0.1); Basophils Percent Auto 0.6 % (0.2-1.2); Eosinophils Absolute Auto 0.2 K/mm3 (0-0.3); Eosinophils Percent Auto 2.2 % (0-4.4); Hematocrit 31.4 % (42.0-52.0); Hemoglobin 10.5 g/dL (14.0-18.0); Immature Granulocyte Absolute 0.06 K/mm3 (0.00-0.031); Immature Granulocyte Percent A 0.5 % (0-0.5); Lymphocytes Percent Auto 5.4 % (18.3-44.2); Mean Corpuscular HGB Conc 33.4 g/dl (32-36); Mean Corpuscular Hemoglobin 26.1 pg (26-34); Mean Corpuscular Volume 77.9 fl (80-100); Monocytes Absolute Auto 1.6 K/mm3 (0.1-0.6); Monocytes Percent Auto 14.4 % (2.6-8.5); Neutrophils Absolute Auto 8.5 K/mm3 (1.3-6.7); Neutrophils Percent Auto 76.9 % (45.5-73.1); Platelet Count Result 571 k/mm3 (150-375); Red Blood Count 4.03 M/mm3 (4.6-6.20); Red Cell Distribution Width 20.5 % (11.5-14.5); White Blood Count 11.1 K/mm3 (4.5-10.0)
[2024-04-03] MEDS: hydrALAZINE HCL 50 MG TABLET PO ×3 (05:58→20:49)
[2024-04-03 06:02] LABS: Alanine Aminotransferase 27 U/L (6-50); Albumin Level 3.6 g/dL (3.5-5.1); Alkaline Phosphatase 133 U/L (38-126); Anion Gap 13 mmol/L (4-12); Aspartate Amino Transferase 38 U/L (17-59); Bilirubin,Total 1.1 mg/dL (0.2-1.3); Blood Urea Nitrogen 35 mg/dL (9-20); Calcium 8.6 mg/dL (8.4-10.2); Carbon Dioxide 30 mmol/L (22-30); Chloride 94 mmol/L (98-107); Estimated CRCL calculation 38 ml/min; Estimated Glomerular Filt Rate 40; Glucose 83 mg/dL (65-110); Magnesium 2.3 mg/dL (1.6-2.3); Phosphorus 4.9 mg/dL (2.5-4.5); Potassium 3.3 mmol/L (3.4-5.0); Sodium 137 mmol/L (137-145)
--- NOTE | 2024-04-03 08:09 | P.PNIM_ITS ---
Progress Note: A&P Assessment and Plan (1) Community acquired pneumonia: Code(s): J18.9 - Pneumonia, unspecified organism Status: Acute Assessment and Plan: CXR: Left lower lobe atelectasis versus pneumonia with pleural effusion. - Complicating Factors: CHF exacerbation - started on CAP tx: Ceftriaxone and Azithromycin started in the ED, Azithromycin but change to doxycycline PO given prolonged QTC with LBBB on EKG - MRSA negative - Viral PCR: negative for Flu/COVID/RSV - Chlamydia pneumoniae, mycoplasma, pneumococcal antigen and Legionella antigen testing pending - Blood cultures obtained on 03/31: NGTD - no supplemental O2 requirement - supportive treatment - Monitor vital signs, I&Os, neuro status and patient is a fall risk - Follow WBC, serum electrolytes, temperature curves and cultures (2) Congestive heart failure: Code(s): I50.9 - Heart failure, unspecified Status: Acute Assessment and Plan: - Symptoms: Worsening dyspnea and worsening bilateral lower extremity swelling - Sees Dr. Lauren as outpatient, Cardiology consult - Current medications: Patient on furosemide 40 mg at baseline, recently increased to 40 mg BID - Supportive treatment Tyl and ibu prn Nebs prn - BNP: 3680 - EKG: Sinus rhythm with first degree AV block, LBBB - Chest XR 03/31: Left lower lobe atelectasis versus pneumonia with pleural effusion. - Chest XR 04/03: Increasing opacities in the bilateral lower lung zones consistent with increasing small bilateral pleural effusions and associated atelectasis and/or pneumonia. - Echo 04/01: LVEF 60-65% - LE dopplers showed no DVT. - IV Lasix 80 mg given in ER, transitioned to 40 mg IV BID. Given extra 40 mg IV x1 for increasing opacities on XR. - Monitor vital signs, I&Os, BUN/creatinine, daily weights, neuro status and patient is a fall risk - Monitor serum electrolytes, Keep serum Potassium>4 and serum Magnesium>2 and CBC -Cardiology consulted discontinued Amlodipine and started Spironolactone 25 mg PO daily started on Jardiance 10 mg daily continue with lasix 40 mg IV BID Urine output yesterday not at goal. Will give a one time dose of Metolazone to see if this helps facilitate diuresis. (3) QT prolongation: Code(s): R94.31 - Abnormal electrocardiogram [ECG] [EKG] Status: Acute Assessment and Plan: -EKG with prolonged QTC 503 as well as LBBB, no prior EKG on file -Changed azithromycin to doxycycline for treatment of pneumonia (4) Hypertension: Code(s): I10 - Essential (primary) hypertension Status: Acute Assessment and Plan: Chronic - Continue hydralazine 50 mg q8H - Cardiology consulted for CHF and discontinued Amlodipine and started Spironolactone 25 mg PO daily - Monitor (5) Diabetes mellitus: Code(s): E11.9 - Type 2 diabetes mellitus without complications Status: Acute Assessment and Plan: - hypoglycemia protocol - POC blood glucose ACHS - home medication - metformin 500 mg daily - correct regimen ordered - low dose TIDWM and HS - A1C 6.4 (6) Atrial fibrillation: Code(s): I48.91 - Unspecified atrial fibrillation Status: Acute Assessment and Plan: Chronic, rate is controlled. Not on anticoagulation as his left atrial appendage has been surgically ligated. Time Spent With Patient Time with patient: 25 - 35 minutes Subjective Date/time seen: 04/03/24 08:09 Interval history: 69-year-old male patient with a past medical history of hypertension, congestive heart failure, chronic constipation type 2 diabetes and recent aortic valve replacement with left atrial appendage closure and Maze procedure who presents to the emergency department with bilateral lower extremities swelling and progressive shortness of breath with decreased activity tolerance. Patient states that he is feeling much better today compared to yesterday. He was placed on oxygen overnight for an spo2 89%. He had a repeat XR which showed increased opacities likely small pleural effusions. Given an extra 1x dose of 40 mg IV lasix. He denies shortness of breath, chest pain, palpitations, nausea/vomiting and abdominal pain. Review of Systems Review of Systems: All systems reviewed & are unremarkable except as noted in HPI and below Exam Narrative: AF HR 73 RR 16 SpO2 93% 1.5 LNC BP 129/50 General: male in no acute respiratory distress who is nontoxic appearing, sitting up in his chair HEENT: Normocephalic. Atraumatic. Extraocular movement intact. Sclera clear and anicteric. No facial asymmetry. Chest: Lungs are diminished but clear on auscultation bilaterally. No wheezes or crackles. CV: Heart was rate controlled with irregularly irregular rhythm. S1/S2. No murmurs, gallops, or rubs. Abd: Abdomen was soft. Nontender. Nondistended. Positive bowel sounds. No organomegaly or masses. Ext: No clubbing, cyanosis. 2+ DP pulses bilaterally. Mild bilateral lower extremity edema. Neuro: Patient is alert and oriented x4. Cranial nerves 2-12 are intact. Speech is clear. Objective Data Vital Signs Vital Signs: Vital Signs - 24 hr 04/02/24 08:11 04/02/24 08:11 04/02/24 14:00 Temperature 97.7 F Pulse Rate 65 Respiratory Rate 20 15 Blood Pressure 125/43 L Pulse Oximetry 91 93 Oxygen Delivery Room Air 04/02/24 21:09 04/02/24 20:00 04/03/24 05:30 Temperature 99.1 F 98.4 F Pulse Rate 61 61 73 Respiratory Rate 12 12 16 Blood Pressure 128/47 L 129/50 L Pulse Oximetry 97 97 89 L Oxygen Delivery Room Air Intake/Output Intake/Output: Intake & Output 03/31/24 04/01/24 04/02/24 04/03/24 23:59 23:59 23:59 23:59 Intake Total 50 1550 1160 700 Output Total 400 1200 2850 1400 Balance -350 350 -1690 -700 Meds/Results Medications: Active Medications Generic Name Dose Route Start Last Admin Trade Name Freq PRN Reason Stop Dose Admin Aspirin 81 mg 04/01/24 09:00 04/02/24 08:36 Aspirin 81 Mg Enteric Tablet PO 81 mg DAILY BRIAN Administration Atorvastatin Calcium 40 mg 04/01/24 09:00 04/02/24 08:36 Atorvastatin 40 Mg Tablet PO 40 mg DAILY BRIAN Administration Dextrose 12.5 gm 03/31/24 21:29 Dextrose 50% 25 Gm/50 Ml Syringe IV PUSH PRN PRN Hypoglycemia Protocol Doxycycline Hyclate 100 mg 04/01/24 09:00 04/02/24 20:44 Doxycycline Hyclate 100 Mg Tablet PO 100 mg Q12HR BRIAN Administration Empagliflozin 10 mg 04/02/24 09:00 04/02/24 08:37 Empagliflozin 10 Mg Tablet PO 10 mg DAILY BRIAN Administration Enoxaparin Sodium 40 mg 04/01/24 09:00 04/02/24 08:37 Enoxaparin 40 Mg/0.4 Ml Syringe SUB-Q 40 mg DAILY BRIAN Administration Ferrous Sulfate 325 mg 04/01/24 12:00 04/02/24 12:37 Ferrous Sulfate [address] BY MOUTH 325 mg NOON BRIAN Administration Furosemide 40 mg 04/01/24 09:00 04/02/24 17:02 Furosemide Inj 40 Mg/4 Ml Vial IV PUSH 40 mg BID BRIAN Administration Gabapentin 400 mg 04/01/24 09:00 04/02/24 20:44 Gabapentin 400 Mg Capsule PO 400 mg Q12HR BRIAN Administration Glucagon 1 mg 03/31/24 21:29 Glucagon For Inj 1 Mg Vial IM PRN PRN Hypoglycemia Protocol Glucose 15 gm 03/31/24 21:29 Glucose Oral Gel 15 Gm Of Glucse In 37.5 Gm Tube PO PRN PRN Hypoglycemia Protocol Hydralazine HCl 50 mg 04/01/24 06:00 04/03/24 05:58 Hydralazine Hcl 50 Mg Tablet PO 50 mg Q8HR BRIAN Administration Ceftriaxone Sodium 1 gm in 50 mls @ 100 mls/hr 04/01/24 20:00 04/02/24 20:44 Rocephin 1 Gm/Ns 50 Ml IVPB 100 mls/hr Q24H BRIAN Administration Insulin Aspart 2 - 5 units 04/01/24 08:00 04/02/24 17:02 Insulin Aspart (*Bkc) 100 Units/Ml SUB-Q Not Given TIDWM BRIAN Protocol Linaclotide 145 mcg 04/01/24 09:00 04/02/24 08:37 Linaclotide 145 Mcg Capsule PO 145 mcg DAILY BRIAN Administration Methocarbamol 500 mg 03/31/24 22:24 04/02/24 20:44 Methocarbamol 500 Mg Tablet PO 500 mg TID PRN Administration muscle spasms Montelukast Sodium 10 mg 04/01/24 09:00 04/02/24 08:37 Montelukast Sodium 10 Mg Tablet PO 10 mg DAILY BRIAN Administration Perflutren Lipid Microsphere 0 ml 03/31/24 21:29 Perflutren Lipid Microspheres 1.5 Ml Vial Diluted To 10 Ml Total Volume IV PUSH 04/03/24 21:29 ONCE PRN adequate visualization Protocol Polyethylene Glycol 17 gm 04/02/24 12:49 04/02/24 12:57 Polyethylene Glycol 3350 17 Gm Powd.Pack PO 17 gm QAM BRIAN Administration Potassium Chloride 40 meq 04/03/24 08:08 Potassium Chloride 20 Meq Er Tablet PO 04/03/24 08:09 ONCE ONE Fluticasone/Salmeterol 2 puff 04/01/24 08:00 04/02/24 20:06 Fluticasone/Salmeterol 115-21 Mcg Inhaler 1 Puff INHALATION 2 puff Q12HRT BRIAN Administration Spironolactone 25 mg 04/02/24 09:00 04/02/24 08:37 Spironolactone 25 Mg Tablet PO 25 mg QAM BRIAN Administration Radiology Results: ITS Impressions Chest X-Ray 03/31/24 17:09 IMPRESSION: Left lower lobe atelectasis versus pneumonia with pleural effusion. Venous Doppler Study 04/01/24 15:24 IMPRESSION: 1. No deep venous thrombosis in either lower limb. Labs Labs: Laboratory Results - last 24 hr 04/02/24 04/02/24 04/02/24 08:16 12:07 16:59 WBC RBC Hgb Hct MCV MCH MCHC RDW Plt Count MPV Immature Gran % (Auto) Neut % (Auto) Lymph % (Auto) [place] % (Auto) Eos % (Auto) Baso % (Auto) Lymph # (Auto) [place] # (Auto) Eos # (Auto) Baso # (Auto) Abs Immat Gran (auto) Absolute Neuts (auto) Absolute Nucleated RBC Nucleated RBC % Sodium Potassium Chloride Carbon Dioxide Anion Gap BUN Creatinine Estim Creat Clear Calc Estimated GFR Glucose POC Capillary Glucose 110 H 115 H 100 Calcium Phosphorus Magnesium Total Bilirubin AST ALT Alkaline Phosphatase Total Protein Albumin 04/02/24 04/03/24 20:58 05:08 WBC 11.1 H RBC 4.03 L Hgb 10.5 L Hct 31.4 L MCV 77.9 L MCH 26.1 MCHC 33.4 RDW 20.5 H Plt Count 571 H MPV 12.0 H Immature Gran % (Auto) 0.5 Neut % (Auto) 76.9 H Lymph % (Auto) 5.4 L [place] % (Auto) 14.4 H Eos % (Auto) 2.2 Baso % (Auto) 0.6 Lymph # (Auto) 0.60 L [place] # (Auto) 1.6 H Eos # (Auto) 0.2 Baso # (Auto) 0.1 Abs Immat Gran (auto) 0.06 H Absolute Neuts (auto) 8.5 H Absolute Nucleated RBC 0.000 Nucleated RBC % 0.0 Sodium 137 Potassium 3.3 L Chloride 94 L Carbon Dioxide 30 Anion Gap 13 H BUN 35 H Creatinine 1.70 H Estim Creat Clear Calc 38 Estimated GFR 40 L Glucose 83 POC Capillary Glucose 111 H Calcium 8.6 Phosphorus 4.9 H Magnesium 2.3 Total Bilirubin 1.1 AST 38 ALT 27 Alkaline Phosphatase 133 H Total Protein 7.0 Albumin 3.6 Quality VTE Prophylaxis VTE prophylaxis: pharmacologic ordered
[2024-04-03] MEDS: FLUTICASONE/SALMETEROL 115-21 MCG INHALER 1 PUFF 2 PUFF INHALATION ×2 (08:10→20:14)
[2024-04-03 08:12] VITALS: PULSE 71; RESP 20
[2024-04-03 08:12] LABS: Glucose Point of Care 93 mg/dl (65-105)
[2024-04-03] MEDS: LINACLOTIDE 145 MCG CAPSULE PO (08:48)
[2024-04-03] MEDS: ASPIRIN 81 MG ENTERIC TABLET PO (08:48)
[2024-04-03] MEDS: EMPAGLIFLOZIN 10 MG TABLET PO (08:48)
[2024-04-03] MEDS: polyethylene glycoL 3350 17 GM POWD.PACK PO (08:48)
[2024-04-03] MEDS: GABAPENTIN 400 MG CAPSULE PO ×2 (08:48→20:49)
[2024-04-03] MEDS: SPIRONOLACTONE 25 MG TABLET PO (08:49)
[2024-04-03] MEDS: ATORVASTATIN 40 MG TABLET PO (08:49)
[2024-04-03] MEDS: DOXYCYCLINE HYCLATE 100 MG TABLET PO ×2 (08:49→20:49)
[2024-04-03] MEDS: MONTELUKAST SODIUM 10 MG TABLET PO (08:49)
[2024-04-03] MEDS: ENOXAPARIN 40 MG/0.4 ML SYRINGE SUB-Q (09:00)
[2024-04-03] MEDS: FUROSEMIDE INJ 40 MG/4 ML VIAL IV PUSH ×3 (09:00→17:48)
[2024-04-03] MEDS: POTASSIUM CHLORIDE 20 MEQ PACKET (FOR LIQUID) 40 MEQ PO (09:06)
[2024-04-03] MEDS: FERROUS SULFATE 325 MG TABLET DR BY MOUTH (11:48)
[2024-04-03 12:05] LABS: Glucose Point of Care 97 mg/dl (65-105)
--- NOTE | 2024-04-03 12:36 | PM.PNCARD ---
Progress Note: A&P Assessment and Plan (1) Acute on chronic heart failure with preserved ejection fraction (HFpEF, >= 50%): Code(s): I50.33 - Acute on chronic diastolic (congestive) heart failure Status: Acute (2) Atrial fibrillation: Code(s): I48.91 - Unspecified atrial fibrillation Status: Acute Plan Patient with heart failure with preserved ejection fraction status post surgical aortic valve replacement and atrial fibrillation. His amlodipine has been discontinued because of the edema and has now been placed on Jardiance instead of metformin. The patient is clinically improving and is essentially euvolemic. Today's chest x-ray shows essential resolution of the bilateral pleural effusions. Hopefully his oxygen can be weaned and if he continues to improve I believe that a discharge in 24 hours is reasonable Harris Patrick MD [facility] Subjective Date/time seen: Date of service: 04/03/24 12:36 Interval history: Reason for visit: Acute on chronic heart failure with preserved LVEF HPI: This is a 69-year-old male with aortic valve stenosis (status post bio AVR 2023), atrial fibrillation with history of Maze procedure, left atrial appendage ligation, chronic diastolic congestive heart failure, hypertension, and stage 3 chronic kidney disease. Mr. Beckman follows in our office with Dr. Lauren. He reports increased shortness of breath starting about two weeks ago. He also had some bilateral lower extremity edema which worsened in the past week when he was started on amlodipine. Also reports orthopnea and states he has only slept in a chair since SAVR procedure. He has had a 9 lb weight gain in 10 days. He is feeling better after receiving some IV diuretic. Date of service 04/02: Swelling is getting better. Did not sleep well last night. Date of service 04/03/2024: Patient is feeling better day by day. Shortness of breath is resolving and edema has resolved altogether. Patient's had some questions about medication changes these were discussed in detail. Exam Const: General: comfortable, no acute distress, alert and awake Orientation/consciousness: patient oriented x3 HENMT: Head: normal to inspection Mouth: Yes moist mucous membranes Eyes: General: appearance normal, both eyes and all related structures Sclera: sclerae normal Pupils: Equal, round and reactive pupils present Neck: Neck: normal visual inspection, supple and no JVD Carotids: normal carotid upstroke Resp: Effort & Inspection: normal respiratory effort Auscultation: clear to auscultation bilaterally Other: No rales no rhonchi no dullness Cardio: Rate: regular rate Rhythm: abnormal rhythm irregularly irregular Heart sounds: S1 normal heart sound present, S2 normal heart sound present and Murmur heart sound present systolic Other: + Bilateral lower extremity edema GI: Auscultation: normal bowel sounds Skin: General skin exam: normal color Neuro: General: patient oriented x3 Cranial nerves: Yes Equal, round and reactive pupils present Extrem: General: abnormal to inspection Other: bilateral pretibial and pedal 2+ pitting edema Psych: Appearance: grossly normal Mental Status: mental status grossly normal Affect: normal affect Objective Data Vital Signs Vital Signs: Vital Signs - 24 hr 04/02/24 14:00 04/02/24 21:09 04/02/24 20:00 Temperature 36.5 C 37.3 C Pulse Rate 65 61 61 Respiratory Rate 15 12 12 Blood Pressure 125/43 L 128/47 L Pulse Oximetry 93 97 97 Oxygen Delivery Room Air 04/03/24 05:30 04/03/24 08:12 Temperature 36.9 C Pulse Rate 73 71 Respiratory Rate 16 20 Blood Pressure 129/50 L Pulse Oximetry 89 L Oxygen Delivery Intake/Output Intake/Output: Intake & Output 03/31/24 04/01/24 04/02/24 04/03/24 23:59 23:59 23:59 23:59 Intake Total 50 1550 1160 820 Output Total 400 1200 2850 1400 Balance -350 350 1690 -580 Meds/Results Medications: Active Medications Generic Name Dose Route Start Last Admin Trade Name Abelq PRN Reason Stop Dose Admin Aspirin 81 mg 04/01/24 09:00 04/03/24 08:48 Aspirin 81 Mg Enteric Tablet PO 81 mg DAILY BRIAN Administration Atorvastatin Calcium 40 mg 04/01/24 09:00 04/03/24 08:49 Atorvastatin 40 Mg Tablet PO 40 mg DAILY BRIAN Administration Dextrose 12.5 gm 03/31/24 21:29 Dextrose 50% 25 Gm/50 Ml Syringe IV PUSH PRN PRN Hypoglycemia Protocol Doxycycline Hyclate 100 mg 04/01/24 09:00 04/03/24 08:49 Doxycycline Hyclate 100 Mg Tablet PO 100 mg Q12HR BRIAN Administration Empagliflozin 10 mg 04/02/24 09:00 04/03/24 08:48 Empagliflozin 10 Mg Tablet PO 10 mg DAILY BRIAN Administration Enoxaparin Sodium 40 mg 04/01/24 09:00 04/03/24 09:00 Enoxaparin 40 Mg/0.4 Ml Syringe SUB-Q 40 mg DAILY BRIAN Administration Ferrous Sulfate 325 mg 04/01/24 12:00 04/03/24 11:48 Ferrous Sulfate [address] BY MOUTH 325 mg NOON BRIAN Administration Furosemide 40 mg 04/01/24 09:00 04/03/24 09:00 Furosemide Inj 40 Mg/4 Ml Vial IV PUSH 40 mg BID BRIAN Administration Gabapentin 400 mg 04/01/24 09:00 04/03/24 08:48 Gabapentin 400 Mg Capsule PO 400 mg Q12HR BRIAN Administration Glucagon 1 mg 03/31/24 21:29 Glucagon For Inj 1 Mg Vial IM PRN PRN Hypoglycemia Protocol Glucose 15 gm 03/31/24 21:29 Glucose Oral Gel 15 Gm Of Glucse In 37.5 Gm Tube PO PRN PRN Hypoglycemia Protocol Hydralazine HCl 50 mg 04/01/24 06:00 04/03/24 05:58 Hydralazine Hcl 50 Mg Tablet PO 50 mg Q8HR BRIAN Administration Ceftriaxone Sodium 1 gm in 50 mls @ 100 mls/hr 04/01/24 20:00 04/02/24 20:44 Rocephin 1 Gm/Ns 50 Ml IVPB 100 mls/hr Q24H BRIAN Administration Insulin Aspart 2 - 5 units 04/01/24 08:00 04/03/24 11:48 Insulin Aspart (*Bkc) 100 Units/Ml SUB-Q Not Given TIDWM BRIAN Protocol Linaclotide 145 mcg 04/01/24 09:00 04/03/24 08:48 Linaclotide 145 Mcg Capsule PO 145 mcg DAILY BRIAN Administration Methocarbamol 500 mg 03/31/24 22:24 04/02/24 20:44 Methocarbamol 500 Mg Tablet PO 500 mg TID PRN Administration muscle spasms Montelukast Sodium 10 mg 04/01/24 09:00 04/03/24 08:49 Montelukast Sodium 10 Mg Tablet PO 10 mg DAILY BRIAN Administration Perflutren Lipid Microsphere 0 ml 03/31/24 21:29 Perflutren Lipid Microspheres 1.5 Ml Vial Diluted To 10 Ml Total Volume IV PUSH 04/03/24 21:29 ONCE PRN adequate visualization Protocol Polyethylene Glycol 17 gm 04/02/24 12:49 04/03/24 08:48 Polyethylene Glycol 3350 17 Gm Powd.Pack PO 17 gm QAM BRIAN Administration Fluticasone/Salmeterol 2 puff 04/01/24 08:00 04/03/24 08:10 Fluticasone/Salmeterol 115-21 Mcg Inhaler 1 Puff INHALATION 2 puff Q12HRT BRIAN Administration Spironolactone 25 mg 04/02/24 09:00 04/03/24 08:49 Spironolactone 25 Mg Tablet PO 25 mg QAM BRIAN Administration Radiology Results: ITS Impressions Venous Doppler Study 04/01/24 15:24 IMPRESSION: 1. No deep venous thrombosis in either lower limb. Chest X-Ray 04/03/24 11:19 IMPRESSION: 1. Increasing opacities in the bilateral lower lung zones consistent with increasing small bilateral pleural effusions and associated atelectasis and/or pneumonia. Labs Labs: Laboratory Results - last 24 hr 04/02/24 04/02/24 04/03/24 16:59 20:58 05:08 WBC 11.1 H RBC 4.03 L Hgb 10.5 L Hct 31.4 L MCV 77.9 L MCH 26.1 MCHC 33.4 RDW 20.5 H Plt Count 571 H MPV 12.0 H Immature Gran % (Auto) 0.5 Neut % (Auto) 76.9 H Lymph % (Auto) 5.4 L [place] % (Auto) 14.4 H Eos % (Auto) 2.2 Baso % (Auto) 0.6 Lymph # (Auto) 0.60 L [place] # (Auto) 1.6 H Eos # (Auto) 0.2 Baso # (Auto) 0.1 Abs Immat Gran (auto) 0.06 H Absolute Neuts (auto) 8.5 H Absolute Nucleated RBC 0.000 Nucleated RBC % 0.0 Sodium 137 Potassium 3.3 L Chloride 94 L Carbon Dioxide 30 Anion Gap 13 H BUN 35 H Creatinine 1.70 H Estim Creat Clear Calc 38 Estimated GFR 40 L Glucose 83 POC Capillary Glucose 100 111 H Calcium 8.6 Phosphorus 4.9 H Magnesium 2.3 Total Bilirubin 1.1 AST 38 ALT 27 Alkaline Phosphatase 133 H Total Protein 7.0 Albumin 3.6 04/03/24 04/03/24 08:05 11:48 WBC RBC Hgb Hct MCV MCH MCHC RDW Plt Count MPV Immature Gran % (Auto) Neut % (Auto) Lymph % (Auto) [place] % (Auto) Eos % (Auto) Baso % (Auto) Lymph # (Auto) [place] # (Auto) Eos # (Auto) Baso # (Auto) Abs Immat Gran (auto) Absolute Neuts (auto) Absolute Nucleated RBC Nucleated RBC % Sodium Potassium Chloride Carbon Dioxide Anion Gap BUN Creatinine Estim Creat Clear Calc Estimated GFR Glucose POC Capillary Glucose 93 97 Calcium Phosphorus Magnesium Total Bilirubin AST ALT Alkaline Phosphatase Total Protein Albumin
[2024-04-03 14:00] VITALS: BP 142/57; PULSE 82; RESP 18; TEMP 37; O2SAT 94
[2024-04-03 16:58] LABS: Glucose Point of Care 107 mg/dl (65-105)
[2024-04-03 17:24] LABS: Pneumococcal Antigen Urine NOT DETECTED
[2024-04-03 20:02] VITALS: BP 142/51; PULSE 73; RESP 18; TEMP 36.8; O2SAT 95
[2024-04-03 20:14] VITALS: PULSE 70; RESP 18
[2024-04-03 20:15] LABS: Glucose Point of Care 109 mg/dl (65-105)
[2024-04-04 05:15] LABS: Basophils Absolute Auto 0.1 K/mm3 (0.0-0.1); Basophils Percent Auto 0.6 % (0.2-1.2); Eosinophils Absolute Auto 0.2 K/mm3 (0-0.3); Eosinophils Percent Auto 1.5 % (0-4.4); Hemoglobin 10.4 g/dL (14.0-18.0); Immature Granulocyte Absolute 0.06 K/mm3 (0.00-0.031); Immature Granulocyte Percent A 0.5 % (0-0.5); Lymphocytes Absolute Auto 0.73 K/mm3 (0.9-3.2); Lymphocytes Percent Auto 5.6 % (18.3-44.2); Mean Corpuscular HGB Conc 33.5 g/dl (32-36); Mean Corpuscular Hemoglobin 25.8 pg (26-34); Mean Corpuscular Volume 76.9 fl (80-100); Mean Platelet Volume 12.1 fl (7.4-10.4); Monocytes Absolute Auto 1.9 K/mm3 (0.1-0.6); Monocytes Percent Auto 14.2 % (2.6-8.5); Neutrophils Absolute Auto 10.1 K/mm3 (1.3-6.7); Neutrophils Percent Auto 77.6 % (45.5-73.1); Platelet Count Result 594 k/mm3 (150-375); Red Blood Count 4.03 M/mm3 (4.6-6.20); Red Cell Distribution Width 19.9 % (11.5-14.5); White Blood Count 13.1 K/mm3 (4.5-10.0)
[2024-04-04 05:27] LABS: Alanine Aminotransferase 29 U/L (6-50); Albumin Level 3.8 g/dL (3.5-5.1); Alkaline Phosphatase 136 U/L (38-126); Anion Gap 15 mmol/L (4-12); Aspartate Amino Transferase 47 U/L (17-59); Bilirubin,Total 1.2 mg/dL (0.2-1.3); Blood Urea Nitrogen 36 mg/dL (9-20); Calcium 8.7 mg/dL (8.4-10.2); Carbon Dioxide 30 mmol/L (22-30); Chloride 90 mmol/L (98-107); Estimated CRCL calculation 36 ml/min; Estimated Glomerular Filt Rate 38; Glucose 76 mg/dL (65-110); Magnesium 2.3 mg/dL (1.6-2.3); Phosphorus 4.6 mg/dL (2.5-4.5); Potassium 3.3 mmol/L (3.4-5.0); Sodium 135 mmol/L (137-145)
[2024-04-04] MEDS: hydrALAZINE HCL 50 MG TABLET PO ×2 (05:51→14:32)
[2024-04-04 06:00] VITALS: BP 131/50; PULSE 76; RESP 18; TEMP 36.9; O2SAT 90
--- NOTE | 2024-04-04 06:45 | P.PNIM_ITS ---
Progress Note: A&P Assessment and Plan (1) Community acquired pneumonia: Code(s): J18.9 - Pneumonia, unspecified organism Status: Acute Assessment and Plan: CXR: Left lower lobe atelectasis versus pneumonia with pleural effusion. - Complicating Factors: CHF exacerbation - started on CAP tx: Ceftriaxone and Azithromycin started in the ED, Azithromycin but change to doxycycline PO given prolonged QTC with LBBB on EKG - MRSA negative - Viral PCR: negative for Flu/COVID/RSV - Chlamydia pneumoniae, mycoplasma, pneumococcal antigen and Legionella antigen testing pending - Blood cultures obtained on 03/31: NGTD - no supplemental O2 requirement - supportive treatment - Monitor vital signs, I&Os, neuro status and patient is a fall risk - Follow WBC, serum electrolytes, temperature curves and cultures (2) Congestive heart failure: Code(s): I50.9 - Heart failure, unspecified Status: Acute Assessment and Plan: - Symptoms: Worsening dyspnea and worsening bilateral lower extremity swelling - Sees Dr. Lauren as outpatient, Cardiology consult - Current medications: Patient on furosemide 40 mg at baseline, recently increased to 40 mg BID - Supportive treatment Tyl and ibu prn Nebs prn - BNP: 3680 - EKG: Sinus rhythm with first degree AV block, LBBB - Chest XR 03/31: Left lower lobe atelectasis versus pneumonia with pleural effusion. - Chest XR 04/03: Increasing opacities in the bilateral lower lung zones consistent with increasing small bilateral pleural effusions and associated atelectasis and/or pneumonia. - Echo 04/01: LVEF 60-65% - LE dopplers showed no DVT. - IV Lasix 80 mg given in ER, transitioned to 40 mg IV BID. Given extra 40 mg IV x1 for increasing opacities on XR on 04/03. - Monitor vital signs, I&Os, BUN/creatinine, daily weights, neuro status and patient is a fall risk - Monitor serum electrolytes, Keep serum Potassium>4 and serum Magnesium>2 and CBC -Cardiology consulted discontinued Amlodipine and started Spironolactone 25 mg PO daily started on Jardiance 10 mg daily continue with lasix 40 mg IV BID Urine output yesterday not at goal. Will give a one time dose of Metolazone to see if this helps facilitate diuresis. (3) QT prolongation: Code(s): R94.31 - Abnormal electrocardiogram [ECG] [EKG] Status: Acute Assessment and Plan: -EKG with prolonged QTC 503 as well as LBBB, no prior EKG on file -Changed azithromycin to doxycycline for treatment of pneumonia (4) Hypertension: Code(s): I10 - Essential (primary) hypertension Status: Acute Assessment and Plan: Chronic - Continue hydralazine 50 mg q8H - Cardiology consulted for CHF and discontinued Amlodipine and started Spironolactone 25 mg PO daily - Monitor (5) Diabetes mellitus: Code(s): E11.9 - Type 2 diabetes mellitus without complications Status: Acute Assessment and Plan: - hypoglycemia protocol - POC blood glucose ACHS - home medication - metformin 500 mg daily - correct regimen ordered - low dose TIDWM and HS - A1C 6.4 (6) Atrial fibrillation: Code(s): I48.91 - Unspecified atrial fibrillation Status: Acute Assessment and Plan: Chronic, rate is controlled. Not on anticoagulation as his left atrial appendage has been surgically ligated. Subjective Date/time seen: 04/04/24 06:45 Interval history: 69-year-old male patient with a past medical history of hypertension, congestive heart failure, chronic constipation type 2 diabetes and recent aortic valve replacement with left atrial appendage closure and Maze procedure who presents to the emergency department with bilateral lower extremities swelling and progressive shortness of breath with decreased activity tolerance. Review of Systems Review of Systems: All systems reviewed & are unremarkable except as noted in HPI and below Exam Narrative: AF HR General: male in no acute respiratory distress who is nontoxic appearing, sitting up in his chair HEENT: Normocephalic. Atraumatic. Extraocular movement intact. Sclera clear and anicteric. No facial asymmetry. Chest: Lungs are diminished but clear on auscultation bilaterally. No wheezes or crackles. CV: Heart was rate controlled with irregularly irregular rhythm. S1/S2. No murmurs, gallops, or rubs. Abd: Abdomen was soft. Nontender. Nondistended. Positive bowel sounds. No organomegaly or masses. Ext: No clubbing, cyanosis. 2+ DP pulses bilaterally. Mild bilateral lower extremity edema. Neuro: Patient is alert and oriented x4. Cranial nerves 2-12 are intact. Speech is clear. Objective Data Vital Signs Vital Signs: Vital Signs - 24 hr 04/03/24 08:12 04/03/24 14:00 04/03/24 20:02 Temperature 98.6 F 98.3 F Pulse Rate 71 82 73 Respiratory Rate 20 18 18 Blood Pressure 142/57 H 142/51 H Pulse Oximetry 94 95 Oxygen Delivery 04/03/24 20:14 04/03/24 20:00 04/04/24 06:00 Temperature 98.4 F Pulse Rate 70 76 Respiratory Rate 18 18 Blood Pressure 131/50 L Pulse Oximetry 90 Oxygen Delivery Room Air Intake/Output Intake/Output: Intake & Output 04/01/24 04/02/24 04/03/24 04/04/24 23:59 23:59 23:59 23:59 Intake Total 1550 1210 1090 Output Total 1200 7586 4474 011 Balance 658 -8800 -4544 -680 Meds/Results Medications: Active Medications Generic Name Dose Route Start Last Admin Trade Name Freq PRN Reason Stop Dose Admin Aspirin 81 mg 04/01/24 09:00 04/03/24 08:48 Aspirin 81 Mg Enteric Tablet PO 81 mg DAILY BRIAN Administration Atorvastatin Calcium 40 mg 04/01/24 09:00 04/03/24 08:49 Atorvastatin 40 Mg Tablet PO 40 mg DAILY BRIAN Administration Dextrose 12.5 gm 03/31/24 21:29 Dextrose 50% 25 Gm/50 Ml Syringe IV PUSH PRN PRN Hypoglycemia Protocol Doxycycline Hyclate 100 mg 04/01/24 09:00 04/03/24 20:49 Doxycycline Hyclate 100 Mg Tablet PO 100 mg Q12HR BRIAN Administration Empagliflozin 10 mg 04/02/24 09:00 04/03/24 08:48 Empagliflozin 10 Mg Tablet PO 10 mg DAILY BRIAN Administration Enoxaparin Sodium 40 mg 04/01/24 09:00 04/03/24 09:00 Enoxaparin 40 Mg/0.4 Ml Syringe SUB-Q 40 mg DAILY BRIAN Administration Ferrous Sulfate 325 mg 04/01/24 12:00 04/03/24 11:48 Ferrous Sulfate [address] BY MOUTH 325 mg NOON BRIAN Administration Furosemide 40 mg 04/01/24 09:00 04/03/24 17:48 Furosemide Inj 40 Mg/4 Ml Vial IV PUSH 40 mg BID BRIAN Administration Gabapentin 400 mg 04/01/24 09:00 04/03/24 20:49 Gabapentin 400 Mg Capsule PO 400 mg Q12HR BRIAN Administration Glucagon 1 mg 03/31/24 21:29 Glucagon For Inj 1 Mg Vial IM PRN PRN Hypoglycemia Protocol Glucose 15 gm 03/31/24 21:29 Glucose Oral Gel 15 Gm Of Glucse In 37.5 Gm Tube PO PRN PRN Hypoglycemia Protocol Hydralazine HCl 50 mg 04/01/24 06:00 04/04/24 05:51 Hydralazine Hcl 50 Mg Tablet PO 50 mg Q8HR BRIAN Administration Ceftriaxone Sodium 1 gm in 50 mls @ 100 mls/hr 04/01/24 20:00 04/03/24 21:18 Rocephin 1 Gm/Ns 50 Ml IVPB Infused Q24H BRIAN Infusion Insulin Aspart 2 - 5 units 04/01/24 08:00 04/03/24 17:47 Insulin Aspart (*Bkc) 100 Units/Ml SUB-Q Not Given TIDWM BRIAN Protocol Linaclotide 145 mcg 04/01/24 09:00 04/03/24 08:48 Linaclotide 145 Mcg Capsule PO 145 mcg DAILY BRIAN Administration Methocarbamol 500 mg 03/31/24 22:24 04/02/24 20:44 Methocarbamol 500 Mg Tablet PO 500 mg TID PRN Administration muscle spasms Montelukast Sodium 10 mg 04/01/24 09:00 04/03/24 08:49 Montelukast Sodium 10 Mg Tablet PO 10 mg DAILY BRIAN Administration Polyethylene Glycol 17 gm 04/02/24 12:49 04/03/24 08:48 Polyethylene Glycol 3350 17 Gm Powd.Pack PO 17 gm QAM BRIAN Administration Fluticasone/Salmeterol 2 puff 04/01/24 08:00 04/03/24 20:14 Fluticasone/Salmeterol 115-21 Mcg Inhaler 1 Puff INHALATION 2 puff Q12HRT BRIAN Administration Spironolactone 25 mg 04/02/24 09:00 04/03/24 08:49 Spironolactone 25 Mg Tablet PO 25 mg QAM BRIAN Administration Radiology Results: ITS Impressions Venous Doppler Study 04/01/24 15:24 IMPRESSION: 1. No deep venous thrombosis in either lower limb. Chest X-Ray 04/03/24 11:19 IMPRESSION: 1. Increasing opacities in the bilateral lower lung zones consistent with increasing small bilateral pleural effusions and associated atelectasis and/or pneumonia. Labs Labs: Laboratory Results - last 24 hr 04/01/24 04/03/24 04/03/24 08:40 08:05 11:48 WBC RBC Hgb Hct MCV MCH MCHC RDW Plt Count MPV Immature Gran % (Auto) Neut % (Auto) Lymph % (Auto) [place] % (Auto) Eos % (Auto) Baso % (Auto) Lymph # (Auto) [place] # (Auto) Eos # (Auto) Baso # (Auto) Abs Immat Gran (auto) Absolute Neuts (auto) Absolute Nucleated RBC Nucleated RBC % Sodium Potassium Chloride Carbon Dioxide Anion Gap BUN Creatinine Estim Creat Clear Calc Estimated GFR Glucose POC Capillary Glucose 93 97 Calcium Phosphorus Magnesium Total Bilirubin AST ALT Alkaline Phosphatase Total Protein Albumin Urine Pneumococcal Ag Not detected 04/03/24 04/03/24 04/04/24 16:49 20:10 04:27 WBC 13.1 H RBC 4.03 L Hgb 10.4 L Hct 31.0 L MCV 76.9 L MCH 25.8 L MCHC 33.5 RDW 19.9 H Plt Count 594 H MPV 12.1 H Immature Gran % (Auto) 0.5 Neut % (Auto) 77.6 H Lymph % (Auto) 5.6 L [place] % (Auto) 14.2 H Eos % (Auto) 1.5 Baso % (Auto) 0.6 Lymph # (Auto) 0.73 L [place] # (Auto) 1.9 H Eos # (Auto) 0.2 Baso # (Auto) 0.1 Abs Immat Gran (auto) 0.06 H Absolute Neuts (auto) 10.1 H Absolute Nucleated RBC 0.000 Nucleated RBC % 0.0 Sodium 135 L Potassium 3.3 L Chloride 90 L Carbon Dioxide 30 Anion Gap 15 H BUN 36 H Creatinine 1.80 H Estim Creat Clear Calc 36 Estimated GFR 38 L Glucose 76 POC Capillary Glucose 107 H 109 H Calcium 8.7 Phosphorus 4.6 H Magnesium 2.3 Total Bilirubin 1.2 AST 47 ALT 29 Alkaline Phosphatase 136 H Total Protein 7.0 Albumin 3.8 Urine Pneumococcal Ag Quality VTE Prophylaxis VTE prophylaxis: pharmacologic ordered
[2024-04-04 07:54] VITALS: PULSE 72; RESP 18; O2SAT 92
[2024-04-04] MEDS: FLUTICASONE/SALMETEROL 115-21 MCG INHALER 1 PUFF 2 PUFF INHALATION (07:54)
[2024-04-04 08:14] LABS: Glucose Point of Care 84 mg/dl (65-105)
[2024-04-04] MEDS: DOXYCYCLINE HYCLATE 100 MG TABLET PO (10:05)
[2024-04-04] MEDS: MONTELUKAST SODIUM 10 MG TABLET PO (10:05)
[2024-04-04] MEDS: ASPIRIN 81 MG ENTERIC TABLET PO (10:05)
[2024-04-04] MEDS: ATORVASTATIN 40 MG TABLET PO (10:05)
[2024-04-04] MEDS: polyethylene glycoL 3350 17 GM POWD.PACK PO (10:05)
[2024-04-04] MEDS: GABAPENTIN 400 MG CAPSULE PO (10:05)
[2024-04-04] MEDS: EMPAGLIFLOZIN 10 MG TABLET PO (10:05)
[2024-04-04] MEDS: LINACLOTIDE 145 MCG CAPSULE PO (10:06)
[2024-04-04] MEDS: ENOXAPARIN 40 MG/0.4 ML SYRINGE SUB-Q (10:06)
[2024-04-04] MEDS: FUROSEMIDE INJ 40 MG/4 ML VIAL IV PUSH (10:06)
[2024-04-04] MEDS: SPIRONOLACTONE 25 MG TABLET PO (10:06)
[2024-04-04] MEDS: POTASSIUM CHLORIDE 20 MEQ PACKET (FOR LIQUID) 40 MEQ PO (10:18)
[2024-04-04 11:56] LABS: Glucose Point of Care 111 mg/dl (65-105)
[2024-04-04] MEDS: FERROUS SULFATE 325 MG TABLET DR BY MOUTH (12:25)
--- NOTE | 2024-04-04 13:38 | PM.PNCARD ---
Progress Note: A&P Assessment and Plan (1) Congestive heart failure: Code(s): I50.9 - Heart failure, unspecified Status: Acute Plan 69-year-old man with atrial fibrillation, aortic valve disease, recent TAVR admitted with fluid overload and CHF. This is been compensated with intravenous furosemide. He says that his home dose of furosemide was 40 mg q.12 hours. I would suggest discharging him on 80 mg daily and follow-up will be arranged in our office with Dr. Lauren. Harris Patrick MD [facility] Subjective Date/time seen: Date of service 04/04/24 13:38 Interval history: Reason for visit: Acute on chronic heart failure with preserved LVEF HPI: This is a 69-year-old male with aortic valve stenosis (status post bio AVR 2023), atrial fibrillation with history of Maze procedure, left atrial appendage ligation, chronic diastolic congestive heart failure, hypertension, and stage 3 chronic kidney disease. Mr. Beckman follows in our office with Dr. Lauren. He reports increased shortness of breath starting about two weeks ago. He also had some bilateral lower extremity edema which worsened in the past week when he was started on amlodipine. Also reports orthopnea and states he has only slept in a chair since SAVR procedure. He has had a 9 lb weight gain in 10 days. He is feeling better after receiving some IV diuretic. Date of service 04/02: Swelling is getting better. Did not sleep well last night. Date of service 04/03/2024: Patient is feeling better day by day. Shortness of breath is resolving and edema has resolved altogether. Patient's had some questions about medication changes these were discussed in detail. 04/04/2024: Patient is feeling well no significant dyspnea he is ambulating in the halls with his . Hopeful to be discharged. Exam Const: General: comfortable, no acute distress, alert and awake Orientation/consciousness: patient oriented x3 HENMT: Head: normal to inspection Mouth: Yes moist mucous membranes Eyes: General: appearance normal, both eyes and all related structures Sclera: sclerae normal Pupils: Equal, round and reactive pupils present Neck: Neck: normal visual inspection, supple and no JVD Carotids: normal carotid upstroke Resp: Effort & Inspection: normal respiratory effort Auscultation: clear to auscultation bilaterally Other: No rales no rhonchi no dullness Cardio: Rate: regular rate Rhythm: abnormal rhythm irregularly irregular Heart sounds: S1 normal heart sound present, S2 normal heart sound present and Murmur heart sound present systolic Other: + Bilateral lower extremity edema GI: Auscultation: normal bowel sounds Skin: General skin exam: normal color Neuro: General: patient oriented x3 Cranial nerves: Yes Equal, round and reactive pupils present Extrem: General: abnormal to inspection Other: bilateral pretibial and pedal 2+ pitting edema Psych: Appearance: grossly normal Mental Status: mental status grossly normal Affect: normal affect Objective Data Vital Signs Vital Signs: Vital Signs - 24 hr 04/03/24 14:00 04/03/24 20:02 04/03/24 20:14 Temperature 37.0 C 36.8 C Pulse Rate 82 73 70 Respiratory Rate 18 18 18 Blood Pressure 142/57 H 142/51 H Pulse Oximetry 94 95 Oxygen Delivery Fraction of Inspired Oxygen 04/03/24 20:00 04/04/24 06:00 04/04/24 07:54 Temperature 36.9 C Pulse Rate 76 Respiratory Rate 18 Blood Pressure 131/50 L Pulse Oximetry 90 92 Oxygen Delivery Room Air Room Air Fraction of Inspired Oxygen 21 04/04/24 07:54 04/04/24 10:15 Temperature Pulse Rate 72 Respiratory Rate 18 Blood Pressure Pulse Oximetry Oxygen Delivery Room Air Fraction of Inspired Oxygen Intake/Output Intake/Output: Intake & Output 04/01/24 04/02/24 04/03/24 04/04/24 23:59 23:59 23:59 23:59 Intake Total 1550 1210 1090 480 Output Total 1200 2850 4575 400 Balance 768 -7838 -4431 80 Meds/Results Medications: Active Medications Generic Name Dose Route Start Last Admin Trade Name Freq PRN Reason Stop Dose Admin Aspirin 81 mg 04/01/24 09:00 04/04/24 10:05 Aspirin 81 Mg Enteric Tablet PO 81 mg DAILY BRIAN Administration Atorvastatin Calcium 40 mg 04/01/24 09:00 04/04/24 10:05 Atorvastatin 40 Mg Tablet PO 40 mg DAILY BRIAN Administration Dextrose 12.5 gm 03/31/24 21:29 Dextrose 50% 25 Gm/50 Ml Syringe IV PUSH PRN PRN Hypoglycemia Protocol Doxycycline Hyclate 100 mg 04/01/24 09:00 04/04/24 10:05 Doxycycline Hyclate 100 Mg Tablet PO 100 mg Q12HR BRIAN Administration Empagliflozin 10 mg 04/02/24 09:00 04/04/24 10:05 Empagliflozin 10 Mg Tablet PO 10 mg DAILY BRIAN Administration Enoxaparin Sodium 40 mg 04/01/24 09:00 04/04/24 10:06 Enoxaparin 40 Mg/0.4 Ml Syringe SUB-Q 40 mg DAILY BRIAN Administration Ferrous Sulfate 325 mg 04/01/24 12:00 04/04/24 12:25 Ferrous Sulfate [address] BY MOUTH 325 mg NOON BRIAN Administration Gabapentin 400 mg 04/01/24 09:00 04/04/24 10:05 Gabapentin 400 Mg Capsule PO 400 mg Q12HR BRIAN Administration Glucagon 1 mg 03/31/24 21:29 Glucagon For Inj 1 Mg Vial IM PRN PRN Hypoglycemia Protocol Glucose 15 gm 03/31/24 21:29 Glucose Oral Gel 15 Gm Of Glucse In 37.5 Gm Tube PO PRN PRN Hypoglycemia Protocol Hydralazine HCl 50 mg 04/01/24 06:00 04/04/24 05:51 Hydralazine Hcl 50 Mg Tablet PO 50 mg Q8HR BRIAN Administration Ceftriaxone Sodium 1 gm in 50 mls @ 100 mls/hr 04/01/24 20:00 04/03/24 21:18 Rocephin 1 Gm/Ns 50 Ml IVPB Infused Q24H BRIAN Infusion Insulin Aspart 2 - 5 units 04/01/24 08:00 04/04/24 12:17 Insulin Aspart (*Bkc) 100 Units/Ml SUB-Q Not Given TIDWM [facility] Protocol Linaclotide 145 mcg 04/01/24 09:00 04/04/24 10:06 Linaclotide 145 Mcg Capsule PO 145 mcg DAILY BRIAN Administration Methocarbamol 500 mg 03/31/24 22:24 04/02/24 20:44 Methocarbamol 500 Mg Tablet PO 500 mg TID PRN Administration muscle spasms Montelukast Sodium 10 mg 04/01/24 09:00 04/04/24 10:05 Montelukast Sodium 10 Mg Tablet PO 10 mg DAILY BRIAN Administration Polyethylene Glycol 17 gm 04/02/24 12:49 04/04/24 10:05 Polyethylene Glycol 3350 17 Gm Powd.Pack PO 17 gm QAM BRIAN Administration Fluticasone/Salmeterol 2 puff 04/01/24 08:00 04/04/24 07:54 Fluticasone/Salmeterol 115-21 Mcg Inhaler 1 Puff INHALATION 2 puff Q12HRT BRIAN Administration Spironolactone 25 mg 04/02/24 09:00 04/04/24 10:06 Spironolactone 25 Mg Tablet PO 25 mg QAM BRIAN Administration Radiology Results: ITS Impressions Venous Doppler Study 04/01/24 15:24 IMPRESSION: 1. No deep venous thrombosis in either lower limb. Chest X-Ray 04/03/24 11:19 IMPRESSION: 1. Increasing opacities in the bilateral lower lung zones consistent with increasing small bilateral pleural effusions and associated atelectasis and/or pneumonia. Labs Labs: Laboratory Results - last 24 hr 04/01/24 04/03/24 04/03/24 08:40 16:49 20:10 WBC RBC Hgb Hct MCV MCH MCHC RDW Plt Count MPV Immature Gran % (Auto) Neut % (Auto) Lymph % (Auto) [place] % (Auto) Eos % (Auto) Baso % (Auto) Lymph # (Auto) [place] # (Auto) Eos # (Auto) Baso # (Auto) Abs Immat Gran (auto) Absolute Neuts (auto) Absolute Nucleated RBC Nucleated RBC % Sodium Potassium Chloride Carbon Dioxide Anion Gap BUN Creatinine Estim Creat Clear Calc Estimated GFR Glucose POC Capillary Glucose 107 H 109 H Calcium Phosphorus Magnesium Total Bilirubin AST ALT Alkaline Phosphatase Total Protein Albumin Urine Pneumococcal Ag Not detected 04/04/24 04/04/24 04/04/24 04:27 08:09 11:49 WBC 13.1 H RBC 4.03 L Hgb 10.4 L Hct 31.0 L MCV 76.9 L MCH 25.8 L MCHC 33.5 RDW 19.9 H Plt Count 594 H MPV 12.1 H Immature Gran % (Auto) 0.5 Neut % (Auto) 77.6 H Lymph % (Auto) 5.6 L [place] % (Auto) 14.2 H Eos % (Auto) 1.5 Baso % (Auto) 0.6 Lymph # (Auto) 0.73 L [place] # (Auto) 1.9 H Eos # (Auto) 0.2 Baso # (Auto) 0.1 Abs Immat Gran (auto) 0.06 H Absolute Neuts (auto) 10.1 H Absolute Nucleated RBC 0.000 Nucleated RBC % 0.0 Sodium 135 L Potassium 3.3 L Chloride 90 L Carbon Dioxide 30 Anion Gap 15 H BUN 36 H Creatinine 1.80 H Estim Creat Clear Calc 36 Estimated GFR 38 L Glucose 76 POC Capillary Glucose 84 111 H Calcium 8.7 Phosphorus 4.6 H Magnesium 2.3 Total Bilirubin 1.2 AST 47 ALT 29 Alkaline Phosphatase 136 H Total Protein 7.0 Albumin 3.8 Urine Pneumococcal Ag
[2024-04-04 14:00] VITALS: BP 123/55; PULSE 75; RESP 12; TEMP 36.7; O2SAT 95
--- NOTE | 2024-04-04 14:01 | P.DS_ITS ---
DS: Admitting Diagnosis Discharge Date 04/04/2024 Admitting Diagnosis community acquired pneumonia CHF QT prolongation HTN DM Afib DS: Discharge Diagnosis Discharge Diagnosis (1) Community acquired pneumonia: Code(s): J18.9 - Pneumonia, unspecified organism Status: Acute (2) Congestive heart failure: Code(s): I50.9 - Heart failure, unspecified Status: Acute (3) QT prolongation: Code(s): R94.31 - Abnormal electrocardiogram [ECG] [EKG] Status: Acute (4) Hypertension: Code(s): I10 - Essential (primary) hypertension Status: Acute (5) Diabetes mellitus: Code(s): E11.9 - Type 2 diabetes mellitus without complications Status: Acute (6) Atrial fibrillation: Code(s): I48.91 - Unspecified atrial fibrillation Status: Acute DS: Summary Hospital Course Reason for hospitalization: community acquired pneumonia CHF QT prolongation HTN DM Afib Hospital Course: 69-year-old male patient with a past medical history of hypertension, congestive heart failure, chronic constipation type 2 diabetes and recent aortic valve replacement with left atrial appendage closure and Maze procedure who presents to the emergency department with bilateral lower extremities swelling and progressive shortness of breath with decreased activity tolerance. BNP was elevated at 3680. Chest XR showed left lower lobe atelectasis versus pneumonia with pleural effusion. Patient was started on Ceftriaxone and Azithromycin in the ED, Azithromycin but change to doxycycline PO given prolonged QTC with LBBB on EKG. Venous Doppler negative for DVT. Echo showed LVEF 60-65%. Cardiology was consulted and discontinued patients amlodipine due to BLE edema. Started patient on spironolactone, Jardiance and changed his dosage of lasix. Since patients blood glucose was well controlled on the Jardiance his metformin was placed on hold at time of discharge until he follows up with his PCP. A repeat chest XR was obtained because patient had developed a new oxygen requirement and showed increasing opacities in the bilateral lower lung zones consistent with increasing small bilateral pleural effusions and associated atelectasis and/or pneumonia. He was given an extra dose of IV lasix at that time. Patient was weaned off of oxygen during admission. Patient had consistently elevated BUN/Cr levels during admission. Per , he has a nephrology appointment on Apr 11 to address his renal function. Patient urine output was WNL and no electrolyte abnormalities were noted. At time of discharge patient had no complaints denying chest pain, shortness a breath, palpitations, dizziness/ lightheadedness, nausea/ vomiting, and abdominal pain. Patient discharged home in a stable condition. He is to follow up with his primary care provider in a week and Cardiology as scheduled. Patient is to to keep his current appointment with his sleeping car porter to further evaluate his kidney function. Status at Discharge Functional status at discharge: independent ambulation Time Spent with Patient Time attestation: Total time spent providing and/or coordinating discharge services: Time spent: Less than 30 minutes Exam Narrative: AF HR 75 RR 12 SPO2 95 RA BP 123/55 General: male in no acute respiratory distress who is nontoxic appearing, sitting up in his chair HEENT: Normocephalic. Atraumatic. Extraocular movement intact. Sclera clear and anicteric. No facial asymmetry. Chest: Lungs are diminished but clear on auscultation bilaterally. No wheezes or crackles. CV: Heart was rate controlled with irregularly irregular rhythm. S1/S2. No murmurs, gallops, or rubs. Abd: Abdomen was soft. Nontender. Nondistended. Positive bowel sounds. No organomegaly or masses. Ext: No clubbing, cyanosis. 2+ DP pulses bilaterally. Nol lower extremity edema. Neuro: Speech is clear. DS: Data Data Completed and Pending Completed studies during hospitalization: Chest XR Venous doppler Chest XR Labs on day of discharge: Labs from last 24 hours 04/04/24 04/04/24 04/04/24 11:49 08:09 04:27 WBC 13.1 H RBC 4.03 L Hgb 10.4 L Hct 31.0 L MCV 76.9 L MCH 25.8 L MCHC 33.5 RDW 19.9 H Plt Count 594 H MPV 12.1 H Immature Gran % (Auto) 0.5 Neut % (Auto) 77.6 H Lymph % (Auto) 5.6 L [place] % (Auto) 14.2 H Eos % (Auto) 1.5 Baso % (Auto) 0.6 Lymph # (Auto) 0.73 L [place] # (Auto) 1.9 H Eos # (Auto) 0.2 Baso # (Auto) 0.1 Abs Immat Gran (auto) 0.06 H Absolute Neuts (auto) 10.1 H Absolute Nucleated RBC 0.000 Nucleated RBC % 0.0 Sodium 135 L Potassium 3.3 L Chloride 90 L Carbon Dioxide 30 Anion Gap 15 H BUN 36 H Creatinine 1.80 H Estim Creat Clear Calc 36 Estimated GFR 38 L Glucose 76 POC Capillary Glucose 111 H 84 Calcium 8.7 Phosphorus 4.6 H Magnesium 2.3 Total Bilirubin 1.2 AST 47 ALT 29 Alkaline Phosphatase 136 H Total Protein 7.0 Albumin 3.8 Urine Pneumococcal Ag 04/03/24 04/03/24 04/01/24 20:10 16:49 08:40 WBC RBC Hgb Hct MCV MCH MCHC RDW Plt Count MPV Immature Gran % (Auto) Neut % (Auto) Lymph % (Auto) [place] % (Auto) Eos % (Auto) Baso % (Auto) Lymph # (Auto) [place] # (Auto) Eos # (Auto) Baso # (Auto) Abs Immat Gran (auto) Absolute Neuts (auto) Absolute Nucleated RBC Nucleated RBC % Sodium Potassium Chloride Carbon Dioxide Anion Gap BUN Creatinine Estim Creat Clear Calc Estimated GFR Glucose POC Capillary Glucose 109 H 107 H Calcium Phosphorus Magnesium Total Bilirubin AST ALT Alkaline Phosphatase Total Protein Albumin Urine Pneumococcal Ag Not detected Preliminary micro results at discharge 03/31/24 20:55 Blood Culture - Preliminary Blood 03/31/24 20:29 Blood Culture - Preliminary Blood Discharge Plan Discharge Attending physician on discharge: Gino Gage Consulting providers: Indigo Low; Dora Rodriguez Discharging Clinician: Dora Rodriguez Anticipated Discharge Date/Time: 04/04/24 13:41 Patient Disposition: Home, Self-Care Activity: as tolerated Diet: as tolerated, heart healthy and renal Discharge Instructions: Discharge disposition: Patient was admitted to the hospital for shortness of breath, diagnosed with pneumonia and acute heart failure exacerbation Started on antibiotics for the pneumonia during admission Continue antibiotics as prescribed even if feeling better doxycycline and Augmentin to complete the course, attached is information on this medication Patient was evaluated by cardiology for the acute heart failure exacerbation Cardiology has made several medication changes Discontinue amlodipine 10 mg daily Started on spironolactone 25 mg daily Started on jardiance 10 mg daily Change in furosemide (lasix) dose Discontinue 40 mg twice a day, started on 80 mg daily Continue the rest of your medications as prescribed Maintain a cardiac diet, 2 g sodium, do not over hydrate Remain active Monitor urine output Daily weights, if you gain more than 3 lb within 1 day or 5 lb in 1 week notify your primary care provider Follow up with Dr. Lauren, attached is his office information Patients new Jardiance medication also works for his diabetes Hold metformin until follow up with your primary care provider Monitor blood glucose levels Monitor blood pressures Take caution while standing, rising, or moving Change positions slowly taking a break between each position change If you standing feel dizzy sat back down and take a break Patient has an elevated creatinine level likely secondary to lasix IV during admission He is to follow up with his sleeping car porter as scheduled on Apr.11 Monitor urine output Encouraged to continue with yearly vaccinations Return to the emergency department if he developed sudden shortness of breath, chest pain, nausea, vomiting, upset stomach or intractable diarrhea Return to the emergency department if you develop fever greater than 101.5 Follow-up with the primary care physician within 1-2 weeks Thank you for choosing [facility] for your healthcare needs Patient Instructions: Antibiotic Form, Spironolactone (By mouth), Doxycycline (By mouth), Amoxicillin/Clavulanate Potassium (By mouth), Empagliflozin (By mouth), Heart Failure (DC), Community Acquired Pneumonia (DC) Patient Language: Iraqi Stand Alone Forms: General Discharge Information Follow-up/Referrals: Hernan Lauren MD [Physician] - Call for Appointment UNKNOWN,DOCTOR [Primary Care Provider] - 1 Week Discharge Medications: New Jardiance 10 mg Tablet 10 mg PO DAILY Qty: 30 0RF spironolactone 25 mg Tablet 25 mg PO QAM Qty: 30 0RF furosemide 80 mg Tablet 80 mg PO DAILY Qty: 30 0RF doxycycline hyclate 100 mg Tablet 100 mg PO Q12HR Qty: 5 0RF amoxicillin-pot clavulanate 875-125 mg tablet 1 tablet PO Q12H Qty: 5 0RF Continued atorvastatin 40 mg tablet 40 mg PO DAILY methocarbamol 500 mg tablet 500 mg PO TID PRN (Reason: muscle spasms) fluticasone propion-salmeterol [Wixela Inhub] 250-50 mcg/dose blister with device 2 inh INHALATION DAILY gabapentin 400 mg capsule 400 mg PO BID aspirin 81 mg tablet,delayed release (DR/EC) 81 mg PO DAILY ferrous sulfate 325 mg (65 mg iron) tablet 325 mg PO DAILY montelukast 10 mg tablet 10 mg PO DAILY hydralazine 50 mg tablet 50 mg PO TID Linzess 145 mcg capsule 145 mcg PO DAILY Held metformin 500 mg tablet 500 mg PO DAILY Hold Instructions: Resume on 04/11/24. Hold until follow up with PCP. Discontinued furosemide 40 mg tablet 40 mg PO DAILY amlodipine 10 mg tablet 10 mg PO DAILY Date of admission: 03/31/24 20:31 Primary Care Provider: UNKNOWN,DOCTOR Admitting Provider: Jovanny Branch Attending physician on admission: Jovanny Branch Condition: Stable Hospitalist MIPS Heart Failure (Exclusion) Patient has history of Heart Transplant or Left Ventricular Assistive Device?: No IF YES, STOP HERE Heart Failure (Qualifier) Patient has current or prior documentation of LVEF less than or equal to 40%, or mod/servere depressed LVSF?: No IF NO, STOP HERE
[2024-04-04 14:11] LABS: Chlamydia pneumoniae by PCR Not Detected
[2024-04-10 22:14] LABS: Legionella pneumophila Ag Ur NOT DETECTED
== END 2024-04-04 16:40 | disposition home or self-care (01) | DRG 193 ==
LOC: ANHED 18:54 → ANH2MED 21:22
PROVIDERS: Emergency Medicine; Nurse Practitioner; Admitting Provider Internal Medicine; Emergency Provider Emergency Medicine; Visit Provider Internal Medicine
DX: J18.9 Pneumonia, unspecified organism (principal); I50.33 Acute on chronic diastolic (congestive) heart failure; I13.0 Hypertensive heart and chronic kidney disease with heart failure and stage 1 through stage 4 chronic kidney disease, or unspecified chronic kidney disease; I48.20 Chronic atrial fibrillation, unspecified; R94.31 Abnormal electrocardiogram [ECG] [EKG]; E11.22 Type 2 diabetes mellitus with diabetic chronic kidney disease; N18.30 Chronic kidney disease, stage 3 unspecified; I35.0 Nonrheumatic aortic (valve) stenosis; I25.10 Atherosclerotic heart disease of native coronary artery without angina pectoris; K59.00 Constipation, unspecified; Z20.822 Contact with and (suspected) exposure to COVID-19; Z95.2 Presence of prosthetic heart valve; Z95.5 Presence of coronary angioplasty implant and graft
CPT/HCPCS: 36415; 71045; 71046; 80053; 80069; 82948; 83036; 83605; 83735; 83880; 84484; 85025; 85610; 85730; 87040; 87449; 87486; 87637; 87641; 87899; 93005; 93306; 93970; 94640; 99285; A9270; J0456; J0696; J1650; J1940